=== PATIENT | female | born 1955 | race Caucasian/White ===

== ENCOUNTER → 2016-10-22 | Outpatient (REF) | payer OTHER ==
[2016-10-22 11:20] LABS: BASO % 0.5 % (0.0-1.0); EOS # 0.1 K/mm3 (0.0-0.50); EOS % 1.5 % (0.0-3.0); LARGE UNSTAINED CELL # 0.1 K/mm3 (0.0-0.4); LYMPH # 1.1 K/mm3 (1.5-4.5); LYMPH % 22.5 % (24.0-44.0); MEAN CORPUSCULAR HEMOGLOBIN 32.2 pg (27.0-33.0); MEAN CORPUSCULAR HGB CONC 33.1 g/dl (32.0-36.5); MEAN CORPUSCULAR VOLUME 97.3 fl (80.0-96.0); MONO # 0.4 K/mm3 (0.0-0.8); MONO % 7.5 % (0.0-5.0); NEUTROPHILS # 3.3 K/mm3 (1.8-7.7); PLATELET COUNT, AUTOMATED 181 k/mm3 (150-450); RED CELL DISTRIBUTION WIDTH 12.7 % (11.5-14.5); WHITE BLOOD COUNT 5.1 K/mm3 (4.0-10.0)
[2016-10-22 11:36] LABS: ALBUMIN 3.8 GM/DL (3.2-5.2); ALBUMIN/GLOBULIN RATIO 1.09 (1.00-1.93); ALKALINE PHOSPHATASE 99 U/L (45-117); ALT/SGPT 44 U/L (12-78); ANION GAP 10 MEQ/L (8-16); AST/SGOT 25 U/L (15-37); BILIRUBIN,TOTAL 0.9 MG/DL (0.2-1.0); BLOOD UREA NITROGEN 15 MG/DL (7-18); CALCIUM LEVEL 9.8 MG/DL (8.8-10.2); CARBON DIOXIDE LEVEL 29 MEQ/L (21-32); CHLORIDE LEVEL 101 MEQ/L (98-107); CHOLESTEROL LEVEL 236 MG/DL (<200); CREATININE FOR GFR 0.85 MG/DL (0.55-1.02); GLOMERULAR FILTRATION RATE > 60.0 (>45); GLUCOSE, FASTING 104 MG/DL (80-110); POTASSIUM SERUM 3.9 MEQ/L (3.5-5.1); SODIUM LEVEL 140 MEQ/L (136-145); TOTAL PROTEIN 7.3 GM/DL (6.4-8.2); TRIGLYCERIDES LEVEL 227 MG/DL (<150)
== END ==
LOC: M SFHCPLAZ 08:34
PROVIDERS: ATTEND Family Medicine
DX: I10 Essential (primary) hypertension (principal); E78.5 Hyperlipidemia, unspecified; R73.01 Impaired fasting glucose; E55.9 Vitamin D deficiency, unspecified

== ENCOUNTER → 2018-06-14 | Outpatient (REF) | payer OTHER ==
[2018-06-14 19:13] LABS: ALBUMIN 3.5 GM/DL (3.2-5.2); ALT/SGPT 81 U/L (12-78); BILIRUBIN,TOTAL 1.1 MG/DL (0.2-1.0); BLOOD UREA NITROGEN 10 MG/DL (7-18); CALCIUM LEVEL 8.7 MG/DL (8.8-10.2); CARBON DIOXIDE LEVEL 31 MEQ/L (21-32); CHLORIDE LEVEL 100 MEQ/L (98-107); CREATININE FOR GFR 0.87 MG/DL (0.55-1.30); FREE T4 1.13 NG/DL (0.76-1.46); GLOMERULAR FILTRATION RATE > 60.0 (>45); GLUCOSE, FASTING 113 MG/DL (70-100); POTASSIUM SERUM 4.1 MEQ/L (3.5-5.1); SODIUM LEVEL 137 MEQ/L (136-145); TOTAL PROTEIN 7.1 GM/DL (6.4-8.2)
[2018-06-14 19:15] LABS: VITAMIN B12 LEVEL 550 PG/ML (247-911)
[2018-06-14 19:30] LABS: HEMATOCRIT 46.8 % (36.0-47.0)
[2018-06-15 13:43] LABS: ALBUMIN % 56.3 % (55.8-66.1); ALPHA-1-GLOBULINS 0.36 GM/DL (0.17-0.41); ALPHA-2-GLOBULINS 0.94 GM/DL (0.42-0.99); ALPHA-2-GLOBULINS % 13.3 % (7.1-11.8); BETA-1-GLOBULINS % 5.6 % (4.7-7.2); BETA-2-GLOBULINS 0.37 GM/DL (0.19-0.55); BETA-2-GLOBULINS % 5.2 % (3.2-6.5); GAMMA GLOBULIN % 14.6 % (11.1-18.8); GAMMA GLOBULINS 1.04 GM/DL (0.65-1.58)
== END ==
LOC: M LABDRAW1 11:22
PROVIDERS: ATTEND Family Medicine
DX: N18.2 Chronic kidney disease, stage 2 (mild) (principal); E78.5 Hyperlipidemia, unspecified; R73.01 Impaired fasting glucose; D75.89 Other specified diseases of blood and blood-forming organs

== ENCOUNTER → 2018-08-22 | Outpatient (REF) | payer OTHER ==
[2018-08-22 13:40] LABS: ALBUMIN 3.6 GM/DL (3.2-5.2); ALT/SGPT 63 U/L (12-78); BILIRUBIN,DIRECT 0.2 MG/DL (0.0-0.2); BILIRUBIN,TOTAL 0.5 MG/DL (0.2-1.0); CHOLESTEROL LEVEL 166 MG/DL (<200); CHOLESTEROL RISK RATIO 3.387 (<5); FREE T4 1.03 NG/DL (0.76-1.46); HDL CHOLESTEROL 49 MG/DL (>40); LDL CHOLESTEROL 87 MG/DL (<100); NON-HDL-C 117 MG/DL; TOTAL PROTEIN 6.6 GM/DL (6.4-8.2); TRIGLYCERIDES LEVEL 152 MG/DL (<150)
[2018-08-23 08:23] LABS: THYROID PEROXIDASE ANTIBODY < 28.0 U/ML (<60.0)
[2018-08-23 08:34] LABS: HEPATITIS B SURFACE ANTIGEN NEGATIVE (NEGATIVE)
[2018-08-23 09:03] LABS: HEPATITIS C VIRUS ABY INDEX 0.1 INDEX (<0.8)
== END ==
LOC: M LABDRAW1 11:57
PROVIDERS: ATTEND Family Medicine
DX: E78.5 Hyperlipidemia, unspecified (principal); K76.0 Fatty (change of) liver, not elsewhere classified

== ENCOUNTER → 2018-08-25 | Outpatient (CLI) | payer OTHER ==
--- NOTE | 2018-08-25 09:37 | REP ---
RIGHT UPPER QUADRANT ULTRASOUND: Real-time sonographic evaluation of the right upper quadrant performed. Gallbladder demonstrates no evidence of intraluminal sludge or calculi, wall thickening, or pericholecystic fluid. There is no intrahepatic or extrahepatic biliary dilatation, common bile duct measuring 4 mm. Liver demonstrates heterogeneous echotexture with septated cyst in the left lobe 7 mm in diameter. No other gross liver or pancreatic mass is seen. The pancreatic tail is not well seen due to overlying bowel gas. Right kidney demonstrates no hydronephrosis with normal size 12 cm in length. There is trace free fluid inferior to the right kidney. IMPRESSION: No gallstones or biliary dilatation. Septated cyst left lobe liver 7 mm. Trace free fluid inferior to the right kidney. Electronically Signed by Thang Suárez MD 08/26/2018 10:41 A
== END ==
LOC: M RAD 07:24
PROVIDERS: ATTEND Family Medicine
DX: K76.89 Other specified diseases of liver (principal); K76.0 Fatty (change of) liver, not elsewhere classified

== ENCOUNTER → 2020-04-07 | Outpatient (REF) | payer MEDICARE, OTHER ==
[2020-04-07 14:05] LABS: BASO % 0.6 % (0.0-1.0); EOS # 0.1 10^3/uL (0.0-0.5); EOS % 1.1 % (0.0-3.0); HEMATOCRIT 43.2 % (36.0-47.0); HEMOGLOBIN 13.7 g/dl (12.0-15.5); LYMPH # 0.6 10^3/uL (1.5-5.0); LYMPH % 13.3 % (24.0-44.0); MEAN CORPUSCULAR HEMOGLOBIN 32.1 pg (27.0-33.0); MEAN CORPUSCULAR HGB CONC 31.7 g/dl (32.0-36.5); MEAN CORPUSCULAR VOLUME 101.2 fl (80.0-96.0); MONO # 0.6 10^3/uL (0.0-0.8); MONO % 12.4 % (2.0-8.0); NEUTROPHILS # 3.4 10^3/uL (1.5-8.5); PLATELET COUNT, AUTOMATED 155 10^3/uL (150-450); RED BLOOD COUNT 4.27 10^6/uL (4.00-5.40); WHITE BLOOD COUNT 4.7 10^3/uL (4.0-10.0)
[2020-04-07 14:31] LABS: HEMOGLOBIN A1c 5.3 %
[2020-04-07 14:52] LABS: MALB URINE SIEMENS 19.5 MG/L; MAU/CREAT RATIO 7.9 MCG/MG (0.0-30.0)
[2020-04-07 14:53] LABS: ALBUMIN 3.6 GM/DL (3.2-5.2); ALT/SGPT 52 U/L (12-78); BILIRUBIN,TOTAL 0.6 MG/DL (0.2-1.0); BLOOD UREA NITROGEN 14 MG/DL (7-18); CARBON DIOXIDE LEVEL 31 MEQ/L (21-32); CHLORIDE LEVEL 102 MEQ/L (98-107); CHOLESTEROL LEVEL 233 MG/DL (<200); CHOLESTEROL RISK RATIO 3.426 (<5); CREATININE FOR GFR 0.92 MG/DL (0.55-1.30); FREE T4 0.84 NG/DL (0.76-1.46); GLOMERULAR FILTRATION RATE > 60.0 (>45); GLUCOSE, FASTING 118 MG/DL (70-100); HDL CHOLESTEROL 68 MG/DL (>40); LDL CHOLESTEROL 125 MG/DL (<100); NON-HDL-C 165 MG/DL; POTASSIUM SERUM 4.1 MEQ/L (3.5-5.1); PTH INTACT 62.5 PG/ML (18.5-88.0); SODIUM LEVEL 138 MEQ/L (136-145); TOTAL 25(OH) VITAMIN D 28.8 NG/ML (30.0-100.0); TOTAL PROTEIN 6.7 GM/DL (6.4-8.2); TRIGLYCERIDES LEVEL 199 MG/DL (<150)
== END ==
LOC: M SFHCPLAZ 11:22
PROVIDERS: ATTEND Family Medicine
DX: R73.01 Impaired fasting glucose (principal); I10 Essential (primary) hypertension; E55.9 Vitamin D deficiency, unspecified; E78.5 Hyperlipidemia, unspecified; Z79.899 Other long term (current) drug therapy

== ENCOUNTER 2020-07-05 20:31 | Inpatient (IN) | payer MEDICARE, OTHER ==
[~2020-07-05] VITALS: Ht 162.6 cm; Wt 109.5 kg
[2020-07-05] MEDS ORDERED: CHLO125TA PO (20:55)
[2020-07-05] MEDS ORDERED: IRBE300T7 PO (20:55)
[2020-07-05] MEDS ORDERED: VITA50005 PO (20:55)
[2020-07-05] MEDS ORDERED: CITA40TA4 PO (20:55)
[2020-07-05] MEDS ORDERED: CARV25TA PO (20:55)
[2020-07-05] MEDS ORDERED: CLON0.5T2 PO (20:55)
[2020-07-05] MEDS ORDERED: ALPR0.25 PO (20:55)
[2020-07-05] MEDS ORDERED: TRAZ-252 PO (20:55)
[2020-07-05] MEDS ORDERED: LORazepam 2 MG/ML VIAL IV STA ×2 (21:41→23:58)
[2020-07-05] MEDS ORDERED: NS 1,000 ML IV ONE (21:45)
[2020-07-05 22:04] LABS: BASO # 0.1 10^3/uL (0.0-0.2); BASO % 0.7 % (0.0-1.0); EOS # 0.1 10^3/uL (0.0-0.5); EOS % 1.8 % (0.0-3.0); HEMATOCRIT 39.3 % (36.0-47.0); HEMOGLOBIN 12.2 g/dl (12.0-15.5); LYMPH % 29.5 % (24.0-44.0); MEAN CORPUSCULAR HEMOGLOBIN 31.8 pg (27.0-33.0); MEAN CORPUSCULAR VOLUME 102.3 fl (80.0-96.0); MONO # 0.9 10^3/uL (0.0-0.8); MONO % 12.8 % (2.0-8.0); NEUTROPHILS # 3.7 10^3/uL (1.5-8.5); NEUTROPHILS % 54.5 % (36.0-66.0); PLATELET COUNT, AUTOMATED 187 10^3/uL (150-450); RED BLOOD COUNT 3.84 10^6/uL (4.00-5.40); WHITE BLOOD COUNT 6.7 10^3/uL (4.0-10.0)
[2020-07-05 22:36] LABS: ACETAMINOPHEN LEVEL < 2.0 UG/ML (10.0-30.0); ALBUMIN 3.8 GM/DL (3.2-5.2); ALT/SGPT 48 U/L (12-78); BILIRUBIN,DIRECT 0.1 MG/DL (0.0-0.2); BILIRUBIN,TOTAL 0.4 MG/DL (0.2-1.0); BLOOD UREA NITROGEN 53 MG/DL (7-18); CALCIUM LEVEL 9.1 MG/DL (8.8-10.2); CARBON DIOXIDE LEVEL 24 MEQ/L (21-32); CHLORIDE LEVEL 101 MEQ/L (98-107); CK-MB VALUE MASS < 1.0 NG/ML (<3.6); CPK CREATINE PHOSPHOKINASE 79 U/L (26-192); CREATININE FOR GFR 2.58 MG/DL (0.55-1.30); ETHYL ALCOHOL (ETHANOL) 0.166 % (0.000-0.010); GLOMERULAR FILTRATION RATE 19.8 (>45); GLUCOSE, FASTING 102 MG/DL (70-100); MB/CK RELATIVE INDEX 1.27 (< OR =4); SALICYLATE LEVEL < 1.7 MG/DL (5.0-30.0); SODIUM LEVEL 135 MEQ/L (136-145); TOTAL PROTEIN 7.3 GM/DL (6.4-8.2); TROPONIN I < 0.02 NG/ML (< 0.10)
[2020-07-05 22:41] LABS: AMPHETAMINES LEVEL URINE NEGATIVE (NEGATIVE); BARBITURATES URINE NEGATIVE (NEGATIVE); BENZODIAZEPINES URINE POSITIVE (NEGATIVE); CANNABINOIDS URINE NEGATIVE (NEGATIVE); COCAINE METABOLITE URINE NEGATIVE (NEGATIVE); METHADONE URINE NEGATIVE (NEGATIVE); OPIATES URINE NEGATIVE (NEGATIVE); PHENCYCLIDINE URINE NEGATIVE (NEGATIVE)
--- NOTE | 2020-07-05 23:31 | REPVR ---
PROCEDURE INFORMATION: Exam: XR Chest Exam date and time: 07/05/2020 10:39 PM Age: 64 years old Clinical indication: Altered mental status TECHNIQUE: Imaging protocol: XR of the chest. Views: 1 view. COMPARISON: No relevant prior studies available. FINDINGS: Lungs: Unremarkable. No consolidation. No pulmonary edema. Pleural spaces: Unremarkable. No pleural effusion. No pneumothorax. Heart/Mediastinum: Unremarkable. No cardiomegaly. Bones/joints: There are endplate spurs in the thoracic spine. IMPRESSION: No radiographic evidence for an acute cardiopulmonary process. Electronically signed by: Stefan Sheehan On 07/05/2020 23:31:22 PM
--- NOTE | 2020-07-05 23:31 | REPVR ---
PROCEDURE INFORMATION: Exam: CT Head Without Contrast Exam date and time: 07/05/2020 10:53 PM Age: 64 years old Clinical indication: Altered mental status/memory loss TECHNIQUE: Imaging protocol: Computed tomography of the head without contrast. Radiation optimization: All CT scans at this facility use at least one of these dose optimization techniques: automated exposure control; mA and/or kV adjustment per patient size (includes targeted exams where dose is matched to clinical indication); or iterative reconstruction. COMPARISON: No relevant prior studies available. FINDINGS: Brain: There is no CT evidence for an acute large vessel territorial infarct. There are non-specific foci of low attenuation in the periventricular and subcortical white matter, which are likely the sequela of chronic small vessel ischemic injury. No acute intracranial hemorrhage is seen. No mass effect, midline shift, or herniation is noted. Cerebral ventricles: There is a chronic infarct involving the periventricular white matter adjacent to the frontal horn of the right lateral ventricle with associated ex vacuo dilatation of the frontal horn of the right lateral ventricle. Normal for age. No hydrocephalus. Bones/joints: The skull is intact. No suspicious osteolytic or osteoblastic lesion. Paranasal sinuses: The imaged portions of the sinuses are well-aerated. No air-fluid levels are noted in the sinuses. Mastoid air cells: Clear. Soft tissues: There is soft tissue edema both sides of the forehead. IMPRESSION: 1. No acute intracranial abnormality. 2. 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 Electronically signed by: Stefan Sheehan On 07/05/2020 23:30:42 PM
[2020-07-05] MEDS ORDERED: LORazepam 2 MG TAB PO PRN (23:40)
[2020-07-05] MEDS ORDERED: ACETAMINOPHEN TAB 650MG DOSE (2X325MG) PO PRN (23:40)
[2020-07-05] MEDS ORDERED: MAALOX 30 ML SUSP *UDC PO PRN (23:40)
[2020-07-05] MEDS ORDERED: MOM 30ML SUSPENSION UDC PO PRN (23:40)
[2020-07-05] MEDS ORDERED: NS 1,000 ML IV SCH (23:40)
--- NOTE | 2020-07-05 23:40 | HPEPDOC ---
[facility] Medical History & Physical Date of Admission July 05, 2020 Date of Service: July 05, 2020 Primary Care Physician: Suman Mi M.D. Attending Physician: KATELYN JASSO MD History and Physical TIME OF SERVICE: 1155pm CHIEF COMPLAINT: depression HISTORY OF PRESENT ILLNESS: Per , this 64 yr old has been with her since they were 12 yrs old but he 1 week ago thereafter his has been very depressed, crying a lot, not sleeping and not eating, making statements that she wants to and be with her and has been confused. Her PCP started her on Xanax and later switched her to Clonipine and Trazadone. She had a fall today which prompted her daughter to bring her to the hospital. She was agitated in the ER and given Ativan. REVIEW OF SYSTEMS: 12-point review of systems negative except as listed in HPI PAST MEDICAL/ SURGICAL HISTORY: essential HTN, PATEL, CKD2, YASHIRA, Obesity, bilateral knee OA SOCIAL HISTORY: lives alone & doesnt smoke FAMILY HISTORY: CAD, CVA, Cancer ALLERGIES: Please see below. HOME MEDICATIONS: Please see below. PHYSICAL EXAMINATION: VITAL SIGNS: Please see below. GENERAL APPEARANCE: well nourished and developed/ anxious & teary HEENT: EOMI / MM pink but dry CARDIOVASCULAR: RRR/NMRG LUNGS: CTAB on RA ABDOMEN: contour obese /soft / NT MUSCULOSKELETAL: NCAT /BG x 4 INTEGUMENT: not flushed pale or diaphoretic NEUROLOGICAL: CN 2-12 intact / speech not dysarthric PSYCHIATRIC: A&O x 3/ able to understand and follow all commands LABORATORY DATA: Immature Granulocyte % (Auto) 0.7, Neutrophils (%) (Auto) 54.5, Lymphocytes (%) (Auto) 29.5, Monocytes (%) (Auto) 12.8H, Eosinophils (%) (Auto) 1.8, Basophils (%) (Auto) 0.7, Neutrophils # (Auto) 3.7, Lymphocytes # (Auto) 2.0, Monocytes # (Auto) 0.9H, Eosinophils # (Auto) 0.1, Basophils # (Auto) 0.1, Nucleated Red Blood Cells % (auto) 0.0, Anion Gap 10, Glomerular Filtration Rate 19.8L, Lactic Acid Level 1.8, Calcium Level 9.1, Total Bilirubin 0.4, Direct Bilirubin 0.1, Aspartate Amino Transf (AST/SGOT) 32, Alanine Aminotransferase (ALT/SGPT) 48, Alkaline Phosphatase 90, Ammonia 28, Total Creatine Kinase 79, Creatine Kinase MB < 1.0, Creatine Kinase MB Relative Index 1.27, Troponin I < 0.02, Total Protein 7.3, Albumin 3.8, Albumin/Globulin Ratio 1.1L, Thyroid Stimulating Hormone (TSH) 1.080, Salicylates Level < 1.7L, Acetaminophen Level < 2.0L, Ethyl Alcohol Level 0.166H 07/05/20 22:09: Urine Color YELLOW, Urine Appearance HAZY, Urine pH 5.0, Urine Specific [place] 1.008, Urine Protein NEGATIVE, Urine Glucose (UA) NEGATIVE, Urine Ketones NEGATIVE, Urine Blood NEGATIVE, Urine Nitrite NEGATIVE, Urine Bilirubin NEGATIVE, Urine Urobilinogen 0.2, Urine Leukocyte Esterase TRACEH, Urine WBC (Auto) 1, Urine RBC (Auto) 1, Urine Hyaline Casts (Auto) 6, Urine Bacteria (Auto) 1+H, Urine Squamous Epithelial Cells 2, Urine Amorphous Sediment SMALLH, Urine Sperm (Auto) , Urine Opiates Screen NEGATIVE, Urine Methadone Screen NEGATIVE, Urine Barbiturates Screen NEGATIVE, Urine Phencyclidine Screen NEGATIVE, Urine Amphetamines Screen NEGATIVE, Urine Benzodiazepines Screen POSITIVEH, Urine Cocaine Metabolite Screen NEGATIVE, Urine Cannabinoids Screen NEGATIVE IMAGING: Chest xray IMPRESSION: No radiographic evidence for an acute ca rdiopulmonary process. CT head IMPRESSION: 1. No acute intracranial abnormality. 2. 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 MICROBIOLOGY: respiratory panel neg ASSESSMENT: is a 64 yr old w HTN, PATEL, CKD2, YASHIRA, Obesity, & OA who is admitted for DOROTHEA and Bereavement vs Adjustment disorder. PLAN: 1 DOROTHEA 2/2 poor PO intake and meds Plan: monitor UOP / IVF / f/u renal panel, CK, Ulytes for FENa or FEUrea / renal US / hold Chlorthalidone and Irbesartan 2 Hypotension Resolved Plan: resume Coreg 3 Bereavement vs Adjustment Disorder Plan: c/w Citalopram & Trazodone / add mirtazapine and Rozerem / day time team to consult Psych 4 Fall Suspect orthostatic hypotension Plan: IVF / neurochecks / fall precautions 5 Inebriation vs alcohol Abuse Plan: CIOR protocol 6 Obesity Complicates care DVT px w SCDs Dispo: home vs IMHU after at least 2 midnights stay Home Medications Scheduled Carvedilol (Carvedilol) 25 Mg Tablet, 25 MG PO BID Chlorthalidone (Chlorthalidone) 25 Mg Tablet, 25 MG PO DAILY Citalopram Hydrobromide (Citalopram HBr) 40 Mg Tablet, 40 MG PO DAILY Clonazepam (Clonazepam) 0.5 Mg Tablet, 0.5 MG PO DAILY Ergocalciferol (Vitamin D2) (Vitamin D2) 50,000 Units Cap, 50,000 MG PO QWEEK Irbesartan (Irbesartan) 300 Mg Tablet, 300 MG PO DAILY Trazodone HCl (Trazodone HCl) 50 Mg Tablet, 50 MG PO QHS Allergies Coded Allergies: No Known Allergies (Unverified , 07/05/20) A-FIB/CHADSVASC A-FIB History Current/History of A-Fib/PAF?: No Current PO Anticoag Therapy: No KATELYN JASSO MD July 05, 2020 23:40
[2020-07-06] VITALS (24 sets, daily range): BP systolic 66–125; BP diastolic 32–76; O2SAT 97
[2020-07-06 00:24] LABS: PHOSPHORUS LEVEL 2.7 MG/DL (2.5-4.9); URIC ACID 8.8 MG/DL (2.6-6.0)
[2020-07-06 00:40] LABS: OSMOLALITY SERUM 338 MOSM/KG (280-301)
[2020-07-06] MEDS: MIRTAZAPINE 7.5MG PER 1/2 TABLET PO SCH ×2 (00:50→20:11)
[2020-07-06 01:26] LABS: RSV AMPLIFICATION NEGATIVE (NEGATIVE)
--- NOTE | 2020-07-06 01:28 | REPVR ---
PROCEDURE INFORMATION: Exam: US Retroperitoneal Limited, Kidneys Exam date and time: 07/06/2020 12:03 AM Age: 64 years old Clinical indication: Acute kidney injury TECHNIQUE: Imaging protocol: Real-time ultrasound of the retroperitoneum with image documentation. Examination was focused on the kidneys. COMPARISON: Abdomen, limited US 08/25/2018 7:30 AM FINDINGS: Right kidney: The right kidney is normal in appearance and measures 11.3 cm in length. There is no renal cortical thinning. The renal cortical echogenicity is within normal limits. No renal lesion is seen. There is no hydronephrosis. No obvious stones are seen in the renal collecting system. Left kidney: The left kidney measures 11.2 cm in length. There is no renal cortical thinning. The renal cortical echogenicity is within normal limits. There is a 10 mm x 8 mm x 7 mm simple exophytic cyst arising from the upper pole of the left kidney, for which follow-up is not necessary. There is no hydronephrosis. No obvious stones are seen in the renal collecting system. Bladder: The urinary bladder is normal in appearance. Limited liver: The echogenicity of the liver is increased, which is compatible with fatty liver infiltration. The liver was not fully imaged. IMPRESSION: 1. Essentially normal ultrasound of the kidneys, except for a 10 mm x 8 mm x 7 mm simple exophytic cyst arising from the upper pole of the left kidney, for which follow-up is not necessary. 2. No hydronephrosis. 3. Fatty liver. Electronically signed by: Stefan Sheehan On 07/06/2020 01:28:04 AM
[2020-07-06] MEDS ORDERED: CARVedilol 12.5 MG TAB PO SCH (02:10)
[2020-07-06] MEDS: THIAMINE 100 MG TAB PO SCH ×3 (02:24→20:11)
[2020-07-06] MEDS: traZODone 50 MG TAB PO SCH ×2 (03:21→20:11)
[2020-07-06] MEDS: RAMELTEON 8 MG TAB (ROZEREM) PO SCH ×2 (03:21→20:11)
[2020-07-06] MEDS ORDERED: NS 1,000 ML IV ONE (04:35)
[2020-07-06 04:53] LABS: MEAN CORPUSCULAR HEMOGLOBIN 32.3 pg (27.0-33.0); MEAN CORPUSCULAR HGB CONC 31.4 g/dl (32.0-36.5); MEAN CORPUSCULAR VOLUME 102.6 fl (80.0-96.0); PLATELET COUNT, AUTOMATED 158 10^3/uL (150-450); RED BLOOD COUNT 3.41 10^6/uL (4.00-5.40); WHITE BLOOD COUNT 5.5 10^3/uL (4.0-10.0)
[2020-07-06 05:15] LABS: CALCIUM LEVEL 8.2 MG/DL (8.8-10.2); CREATININE FOR GFR 2.01 MG/DL (0.55-1.30); GLOMERULAR FILTRATION RATE 26.5 (>45); POTASSIUM SERUM 3.7 MEQ/L (3.5-5.1)
[2020-07-06 05:53] LABS: HEMOGLOBIN A1c 5.8 %
--- NOTE | 2020-07-06 07:52 | ECGEPIP ---
[facility] - ED Test Date: 2020-07-05 Pat Name: BERNARDO ALONSO Department: Room: [place] [address] Gender: Female Senior Software Architect: hc : [id number] Requested By: KILEY Bernstein Order Number: [id number] Reading MD: Tod Francis Measurements Intervals [place] Rate: 60 P: 26 MA: 210 QRS: -15 QRSD: 78 T: 44 QT: 460 QTc: 460 Interpretive Statements Sinus rhythm with 1st degree AV block POOR R WAVE PROGRESSION NSTTW ABNORMALITY(S) NO PRIORS FOR COMPARISON Electronically Signed on 07-06-2020 7:52:22 EDT by Tod Francis
[2020-07-06] MEDS: D5W/0.9% SODIUM CHLORIDE 1,000 ML IV SCH ×2 (08:41→20:14)
[2020-07-06] MEDS: CitaloPRAM (CeleXA) 20 MG TAB PO SCH (08:42)
[2020-07-06] MEDS: ENOXAPARIN 30MG/0.3ML SYRINGE (J1650 PER 10MG) SC SCH (08:43)
[2020-07-06] MEDS: clonazePAM 0.5 MG TAB PO SCH (08:43)
[2020-07-06] MEDS: MULTIVITAMINS/MINERALS THERAP 1 TAB PO SCH (08:43)
[2020-07-06] MEDS: FOLIC ACID 1 MG TAB PO SCH (08:43)
--- NOTE | 2020-07-06 14:20 | IPNPDOC ---
Subjective Date Seen The patient was seen on 07/06/20. Subjective Chief Complaint/HPI Makeda is up to this morning, her daughter is at the bedside. Patient is unrealistic about going home today. Her blood pressures have improved. She has not eaten much at this time. She is not expressing any suicidal ideation Objective Physical Examination General Exam: Positive: Alert, No Acute Distress Eye Exam: Positive: PERRLA, Conjunctiva & lids normal, EOMI; Negative: Sclera icteric Neck Exam: Positive: Supple; Negative: JVD, thyromegaly Chest Exam: Positive: Clear to auscultation, Normal air movement Heart Exam: Positive: Rate Normal, Regular Rhythm, Normal S1, Normal S2; Negative: Murmurs, Rubs Abdomen Exam: Positive: Normal bowel sounds, Soft; Negative: Tenderness, Hepatospenomegaly Extremity Exam: Positive: Normal pulses; Negative: Clubbing, Cyanosis, Edema Assessment /Plan Assessment # DOROTHEA 2/2 dehydration - change to d5NS @ 100 ml/hr - creat improved this am - needs another 24 hours of IVFs - repeat bmp in am # Hypotension - stop coreg # Bereavement vs Adjustment Disorder - continue Citalopram & Trazodone - consult psych # Acute alcohol intoxication - no signs of withdrawal - continue CIWA protocol # Morbid Obesity - Complicates care # DVT - SCDs and lovenox # Dispo: likely home in am Plan/VTE VTE Prophylaxis Ordered?: Yes VS, I&O, 24H, Fishbone Vital Signs/I&O Vital Signs Date Time Temp Pulse Resp B/P (MAP) Pulse Ox O2 Delivery O2 Flow Rate FiO2 07/06/20 08:15 66 105/67 (80) 96 07/06/20 08:00 97.0 16 Room Air 07/06/20 06:30 1.0 I&O- Last 24 Hours up to 6 AM 07/06/20 06:00 Intake Total 2460 ml Output Total 0 ml Balance 2460 ml Laboratory Data 24H LABS Laboratory Tests 2 07/05/20 21:52: Immature Granulocyte % (Auto) 0.7, Neutrophils (%) (Auto) 54.5, Lymphocytes (%) (Auto) 29.5, Monocytes (%) (Auto) 12.8H, Eosinophils (%) (Auto) 1.8, Basophils (%) (Auto) 0.7, Neutrophils # (Auto) 3.7, Lymphocytes # (Auto) 2.0, Monocytes # (Auto) 0.9H, Eosinophils # (Auto) 0.1, Basophils # (Auto) 0.1, Nucleated Red Blood Cells % (auto) 0.0, Anion Gap 10, Glomerular Filtration Rate 19.8L, Osmolality 338H, Lactic Acid Level 1.8, Uric Acid 8.8H, Calcium Level 9.1, Phosphorus Level 2.7, Total Bilirubin 0.4, Direct Bilirubin 0.1, Aspartate Amino Transf (AST/SGOT) 32, Alanine Aminotransferase (ALT/SGPT) 48, Alkaline Phosphatase 90, Ammonia 28, Total Creatine Kinase 79, Creatine Kinase MB < 1.0, Creatine Kinase MB Relative Index 1.27, Troponin I < 0.02, Total Protein 7.3, Albumin 3.8, Albumin/Globulin Ratio 1.1L, Thyroid Stimulating Hormone (TSH) 1.080, Salicylates Level < 1.7L, Acetaminophen Level < 2.0L, Ethyl Alcohol Level 0.166H 07/05/20 22:09: Urine Color YELLOW, Urine Appearance HAZY, Urine pH 5.0, Urine Specific [place] 1.008, Urine Protein NEGATIVE, Urine Glucose (UA) NEGATIVE, Urine Ketones NEGATIVE, Urine Blood NEGATIVE, Urine Nitrite NEGATIVE, Urine Bilirubin NEGATIVE, Urine Urobilinogen 0.2, Urine Leukocyte Esterase TRACEH, Urine WBC (Auto) 1, Urine RBC (Auto) 1, Urine Hyaline Casts (Auto) 6, Urine Bacteria (Auto) 1+H, Urine Squamous Epithelial Cells 2, Urine Amorphous Sediment SMALLH, Urine Sperm (Auto) , Urine Opiates Screen NEGATIVE, Urine Methadone Screen NEGATIVE, Urine Barbiturates Screen NEGATIVE, Urine Phencyclidine Screen NEGATIVE, Urine Amphetamines Screen NEGATIVE, Urine Benzodiazepines Screen POSITIVEH, Urine Cocaine Metabolite Screen NEGATIVE, Urine Cannabinoids Screen NEGATIVE 07/06/20 00:15: Coronavirus (COVID-19)(PCR) NEGATIVE, Influenza Type A (RT-PCR) NEGATIVE, Influenza Type B (RT-PCR) NEGATIVE, Respiratory Syncytial Virus (PCR) NEGATIVE 07/06/20 04:39: Nucleated Red Blood Cells % (auto) 0.0, Anion Gap 10, Glomerular Filtration Rate 26.5L, Calcium Level 8.2L, Estimated Mean Plasma Glucose 120H, Hemoglobin A1c 5.8 CBC/BMP Laboratory Tests 07/05/20 21:52 07/06/20 04:39 Microbiology Microbiology 07/05/20 Urine Culture, Received Pending 07/05/20 Blood Culture, Received Pending 07/05/20 Blood Culture, Received Pending NOMAN PEREZ MD July 06, 2020 14:20
--- NOTE | 2020-07-06 22:16 | MHCR ---
[facility] CONSULTATION DATE: 07/06/2020 The patient is seen via telepsychiatry. HISTORY OF PRESENT ILLNESS: The patient is a 64-year-old woman currently grieving over the of her . They have been together since she was 12 years old. The patient has been appropriately tearful and grieving but she has not been eating or drinking much. Apparently it got to the point where she fell and her daughter brought her to the hospital. The records show that the patient had made statements about wanting to with the . Her primary care provider has already been treating her with Celexa 40 mg q. daily, and then he added Klonopin 0.5 mg q. daily and Trazodone 50 mg at bedtime. The patient today tells me that she is feeling depressed and very sad and she is grieving the of her . Again, which is appropriate. She tells me however that she feels she is doing better. She says that she knows that she needs to eat. She tells me that she really wants to go home. She says both her daughters and grandchildren are very supportive in that they do not leave her sight. She really feels that the medications that she has been given for sleep and to help her with her anxiety have been very good. And she says that she did sleep good last night. PAST PSYCHIATRIC TREATMENT The patient has no history of any prior past psychiatric or current outpatient or inpatient treatment. She has never tried to hurt herself before. FAMILY HISTORY: She denies any psychiatric illness in the family. PAST MEDICAL HISTORY: The patient has multiple medical problems to include: 1. Hypertension. 2. Hyperlipidemia. 3. Chronic kidney disease. SUBSTANCE ABUSE: She denies any trouble with alcohol or drugs. MENTAL STATUS EXAMINATION: The patient is feeling very sad and grieving over her 's but this is appropriate. She is alert and oriented times three. She was pleasant and she was cooperative. She has no formal thought disorder noted. Her mood is sad. Affect is appropriate. She is not psychotic, suicidal or homicidal. Concentration and memory are good. Insight and judgment appear to be good. DIAGNOSIS: Acute bereavement. TREATMENT PLAN: At this point the patient is denying suicidal thoughts. She never said she had suicidal thoughts. And she acknowledges that she is feeling very sad now but says that she has a lot of support in her family and therefore from a psychiatric point of view the patient is not suicidal. She seems to be appropriately grieving. She is recognizing that she does have to eat. She really feels that the current medications are working good for her and she slept good last night and I did review and she did get the Trazodone 50 mg last night, but she was also given Rozerem 8 mg and so it was not clear why she was getting both but it sounds that she slept okay, but I do recommend that probably we discontinue probably the Rozerem and see if she can do and sleep okay with just the Trazodone. Of course she was already on Celexa 40 mg and that should be continued and it looks like she had Remeron 7.5 mg ordered but it was never given because she was sedated. And so I recommend that this not be continued. MTDD
[2020-07-07] VITALS: BP 113/68
[2020-07-07 03:58] VITALS: BP 124/61
[2020-07-07] MEDS: D5W/0.9% SODIUM CHLORIDE 1,000 ML IV SCH (05:30)
[2020-07-07 06:24] LABS: CALCIUM LEVEL 7.9 MG/DL (8.8-10.2); CREATININE FOR GFR 1.52 MG/DL (0.55-1.30); GLOMERULAR FILTRATION RATE 36.5 (>45); POTASSIUM SERUM 4.1 MEQ/L (3.5-5.1)
[2020-07-07 08:00] VITALS: BP 116/59
[2020-07-07] MEDS ORDERED: SLF 3 ML SYR IV PRN (08:05)
[2020-07-07] MEDS: MULTIVITAMINS/MINERALS THERAP 1 TAB PO SCH (08:57)
[2020-07-07] MEDS: clonazePAM 0.5 MG TAB PO SCH (08:58)
[2020-07-07] MEDS: FOLIC ACID 1 MG TAB PO SCH (08:58)
[2020-07-07] MEDS: THIAMINE 100 MG TAB PO SCH (08:58)
[2020-07-07] MEDS: CitaloPRAM (CeleXA) 20 MG TAB PO SCH (08:58)
[2020-07-07] MEDS: ENOXAPARIN 30MG/0.3ML SYRINGE (J1650 PER 10MG) SC SCH (09:00)
[2020-07-07 13:14] LABS: HEPATITIS B SURFACE ANTIBODY NEGATIVE (POSITIVE); PTH INTACT 57.4 PG/ML (18.5-88.0)
[2020-07-07 13:25] LABS: HEPATITIS B SURFACE ANTIGEN NEGATIVE (NEGATIVE)
[2020-07-07 13:53] LABS: HEPATITIS B CORE ANTIBODY IGM NEGATIVE (NEGATIVE)
[2020-07-07] MEDS ORDERED: SLF 3 ML SYR IV SCH (14:00)
--- NOTE | 2020-07-07 14:13 | DSES ---
DISCHARGE SUMMARY DATE OF ADMISSION: 07/05/2020 DATE OF DISCHARGE: 07/07/2020 DISCHARGE DIAGNOSES: 1. Acute kidney injury secondary to acute dehydration from poor oral intake. 2. Hypotension secondary to above. 3. Bereavement versus adjustment disorder. 4. Acute alcohol intoxication. 5. Morbid obesity. FLOAT REMOVER(S) ON THE CASE: Dr. Brody of psychiatry. PROCEDURE(S) PERFORMING DURING THIS HOSPITALIZATION: None. DISPOSITION: The patient is discharged home. CONDITION ON DISCHARGE: Stable with improvement in kidney function, as well as blood pressure. DISCHARGE INSTRUCTIONS: The patient is instructed to take medications as prescribed. She is to hydrate with IV fluids. She is to follow-up with her PCP in one week. She is to use her family support during her period of grief. The patient is advised to not mix alcohol with her antidepressant or Klonopin. IMAGING STUDIES DURING THIS HOSPITALIZATION: 1. Chest x-ray one view showed no acute pathology. 2. CT scan of the head without contrast, which showed no acute intracranial abnormality. 3. Renal ultrasound, which showed no acute obstructive pathology either. RELEVANT LABORATORY DATA: COVID swab was negative. Urine and blood cultures were negative. White count 5.5, hemoglobin 11, hematocrit 35, platelet count 158,000. Sodium 146, potassium 4.1, chloride 114, bicarb 26, anion gap 7. On admission, her BUN was 53 with a creatinine of 2.58 and at discharge, her BUN is 29 with a creatinine of 1.52. Glucose 107, calcium 7.9, lactic acid on admission was 1.8. Urine drug screen was positive for benzos, which she is prescribed, and was negative for salicylates and acetaminophen. Alcohol level was 0.166. HOSPITAL COURSE: Erin is a 64-year-old woman whose recently passed. The patient has been dealing with this tragedy and has had a poor p.o. intake and not caring for herself well. She has seen her PCP who placed her on Klonopin, as well as Celexa. The patient presented to the hospital with hypotension and acute kidney injury. She was admitted to the ICU where she was hydrated with IV fluids. Blood pressures were monitored and she was seen by psychiatry. Clinically the patient has improved. She has been sleeping well during her stay in the hospital. Her kidneys are well hydrated. All imaging studies during this hospitalization are normal. All labs thus far have shown significant improvement. She is stable for discharge home today. DISCHARGE PHYSICAL EXAMINATION: VITAL SIGNS: At the time of discharge, the patient's temperature is 97.9, pulse 63, respirations 18, blood pressure 116/59 without fluids. O2 sat is 96% on room air. GENERAL: The patient is obese, depressed, in no acute distress. SKIN: Intact and warm to touch. No pallor or jaundice. HEENT: Head is atraumatic. Pupils symmetric and react to light. She has no facial asymmetry. Her speech is fluent. Oropharynx is clear. NECK: Supple. LUNGS: Sounds present without rales or rhonchi. HEART: S1, S2. No murmurs, rubs, or gallops. ABDOMEN: Soft, nontender, and nondistended. EXTREMITIES: Without any cyanosis, clubbing, or edema. DISCHARGE MEDICATIONS: 1. Coreg 25 mg twice a day. 2. Chlorthalidone 25 mg p.o. daily. 3. Citalopram 40 mg daily. 4. Clonazepam 0.5 mg p.o. daily. 5. Ergocalciferol 50,000 mg weekly 6. Irbesartan 300 mg p.o. daily. 7. Trazodone 50 mg at bedtime. Total of 30 minutes spent completing all discharge paperwork.
== END 2020-07-07 11:25 | disposition home or self-care (01) | DRG 683 ==
LOC: M ED 20:31 → M ED INP 23:40 → ENRESERV 07-06 01:00 → CANRESERV 07-06 01:00 → M ICU 07-06 02:45 → M PCU 07-06 19:21
PROVIDERS: ADMIT Internal Medicine; ATTEND Internal Medicine
DX: N17.9 Acute kidney failure, unspecified (principal); Z68.41 Body mass index [BMI] 40.0-44.9, adult; Z63.4 Disappearance and death of family member; E66.01 Morbid (severe) obesity due to excess calories; I95.1 Orthostatic hypotension; Z79.899 Other long term (current) drug therapy; F43.20 Adjustment disorder, unspecified; E78.5 Hyperlipidemia, unspecified

== ENCOUNTER → 2020-07-11 | Outpatient (REF) | payer MEDICARE, OTHER ==
[~2020-07-11] MED LIST: ALPR0.25 PO; CARV25TA PO; CHLO125TA PO; CITA40TA4 PO; CLON0.5T2 PO; IRBE300T7 PO; TRAZ-252 PO; VITA50005 PO
[2020-07-11 17:40] LABS: BASO # 0.1 10^3/uL (0.0-0.2); BASO % 0.7 % (0.0-1.0); EOS # 0.1 10^3/uL (0.0-0.5); EOS % 1.4 % (0.0-3.0); HEMATOCRIT 39.7 % (36.0-47.0); HEMOGLOBIN 12.4 g/dl (12.0-15.5); LYMPH # 1.4 10^3/uL (1.5-5.0); LYMPH % 20.5 % (24.0-44.0); MEAN CORPUSCULAR HEMOGLOBIN 32.1 pg (27.0-33.0); MEAN CORPUSCULAR HGB CONC 31.2 g/dl (32.0-36.5); MEAN CORPUSCULAR VOLUME 102.8 fl (80.0-96.0); MONO # 0.7 10^3/uL (0.0-0.8); MONO % 9.4 % (2.0-8.0); NEUTROPHILS # 4.7 10^3/uL (1.5-8.5); NEUTROPHILS % 67.1 % (36.0-66.0); PLATELET COUNT, AUTOMATED 208 10^3/uL (150-450); RED BLOOD COUNT 3.86 10^6/uL (4.00-5.40)
[2020-07-11 18:18] LABS: HEMOGLOBIN A1c 5.9 %
[2020-07-11 18:35] LABS: ALBUMIN 3.7 GM/DL (3.2-5.2); ALT/SGPT 39 U/L (12-78); BILIRUBIN,TOTAL 0.4 MG/DL (0.2-1.0); BLOOD UREA NITROGEN 18 MG/DL (7-18); CALCIUM LEVEL 9.8 MG/DL (8.8-10.2); CARBON DIOXIDE LEVEL 27 MEQ/L (21-32); CHLORIDE LEVEL 106 MEQ/L (98-107); CHOLESTEROL LEVEL 226 MG/DL (<200); CHOLESTEROL RISK RATIO 5.022 (<5); CREATININE FOR GFR 1.55 MG/DL (0.55-1.30); ETHYL ALCOHOL (ETHANOL) < 0.003 % (0.000-0.010); FERRITIN 1123 NG/ML (8-252); GLOMERULAR FILTRATION RATE 35.7 (>45); GLUCOSE, FASTING 106 MG/DL (70-100); HDL CHOLESTEROL 45 MG/DL (>40); LDL CHOLESTEROL 135 MG/DL (<100); LIPASE 158 U/L (73-393); MAGNESIUM LEVEL 1.6 MG/DL (1.8-2.4); NON-HDL-C 181 MG/DL; NT-PRO BNP 458 PG/ML (<125); POTASSIUM SERUM 4.9 MEQ/L (3.5-5.1); SODIUM LEVEL 140 MEQ/L (136-145); TOTAL PROTEIN 6.8 GM/DL (6.4-8.2); TRIGLYCERIDES LEVEL 232 MG/DL (<150)
[2020-07-15 16:33] LABS: H PYLORI SERUM QUANT IgG ABY 1.87 (0.00-0.79); INSULIN LEVEL 26.5 uIU/mL (2.6-24.9)
== END ==
LOC: M SFHCPLAZ 15:27
PROVIDERS: ATTEND Family Medicine
DX: I10 Essential (primary) hypertension (principal); E78.5 Hyperlipidemia, unspecified; F41.1 Generalized anxiety disorder; Z79.899 Other long term (current) drug therapy

== ENCOUNTER → 2020-08-07 | Outpatient (CLI) | payer MEDICARE, OTHER ==
[~2020-08-07] MED LIST changes: +ERGO500029 PO; -VITA50005 PO
--- NOTE | 2020-08-09 23:57 | ECHO ---
ECHOCARDIOGRAM DATE OF PROCEDURE: 08/07/2020 Age: 64 Gender: Female Height: 162 cm Weight: 105 kg REFERRING PHYSICIAN: Dr. Suman Mi. INDICATION: Heart failure unspecified MEASUREMENTS: 2D Measurements: Intraventricular septum 1.20 cm Posterior wall 1.07 cm Left ventricle diastole 5.0 cm Left atrium 4.0 cm Aortic root 3.5 cm Proximal ascending aorta 2.0 cm Left atrial volume index 29 Doppler Measurements: LVOT velocity 113 cm/s LVOT VTI 21.2 cm Mitral E velocity 73.3 cm/s Mitral A velocity 101 cm/s Mitral deceleration time 259 msec MITRAL ANNULAR TISSUE DOPPLER E prime septal 6.5 cm/s, E prime lateral 9.5 cm/s DESCRIPTION: Rhythm was sinus. This was a moderately technically difficult echocardiogram. No pericardial effusion. This was a 2D, M-mode, color flow Doppler, and pulsed wave Doppler examination including mitral annular tissue Doppler. CONCLUSIONS: 1. Normal left ventricle internal dimensions and wall thickness. Normal regional LV wall motion and wall thickening. Normal LV systolic function. LVEF 65% by visual estimate. Grade 1 LV diastolic dysfunction. 2. Mild left atrial dilatation by left atrial volume index. 3. Otherwise normal appearing echocardiogram Doppler findings.
== END ==
LOC: M CARPUL 13:22
PROVIDERS: ATTEND Family Medicine
DX: I50.9 Heart failure, unspecified (principal)

== ENCOUNTER → 2020-09-02 | Outpatient (CLI) | payer MEDICARE, OTHER ==
--- NOTE | 2020-09-02 11:41 | REP ---
INDICATION: HYPERTENSION. COMPARISON: 07/06/2020. TECHNIQUE: Real-time sonographic evaluation of kidneys performed, with duplex Doppler evaluation of renal arteries. FINDINGS: The kidneys are normal in size and echotexture, right kidney measuring 10.2 x 4.4 x 4.7 cm and left kidney 11.2 x 5.6 x 5.2 cm. There is no hydronephrosis bilaterally. There is a cyst in the upper pole the left kidney 1.3 cm in diameter. Urinary bladder is not well distended. Duplex Doppler evaluation of renal arteries performed bilaterally. The peak systolic velocity of the abdominal aorta at the level of the renal arteries is 82.5 centimeter/second. The peak systolic velocity of the main right renal artery is 87.5 centimeters/second, renal to aortic ratio 1.1. Resistive indices right kidney range between 0.72 and 0.74. Acceleration times range between 0.03 and 0.06. Peak systolic velocity of the main left renal artery 66.1 centimeter/second, renal to aortic ratio 0.8. Resistive indices left kidney range between 0.71 and 0.77. Acceleration times range between 0.04 and 0.05. IMPRESSION: No compelling duplex Doppler sonographic evidence of significant renal artery stenosis bilaterally. <Electronically signed by Thang Suárez > 09/02/20 [id number]
== END ==
LOC: M RAD 09:46
PROVIDERS: ATTEND Family Medicine
DX: I10 Essential (primary) hypertension (principal)

== ENCOUNTER 2021-09-24 19:25 | Inpatient (IN) | payer MEDICARE, OTHER, MEDICAID ==
[~2021-09-24] VITALS: Ht 162.6 cm; Wt 76.6 kg
[~2021-09-24 19:25] MED LIST changes: -CITA40TA4 PO; +CITA40TA7 PO
[2021-09-24] MEDS ORDERED: NS 1,000 ML IV ONE (19:55)
[2021-09-24] MEDS ORDERED: CHLORTHALIDONE 25 MG TAB PO ONE (20:00)
[2021-09-24] MEDS ORDERED: NS 500 ML IV ONE (20:00)
[2021-09-24] MEDS ORDERED: CARVedilol 12.5 MG TAB PO ONE (20:00)
[2021-09-24] MEDS ORDERED: clonazePAM 0.5 MG TAB PO ONE (20:00)
[2021-09-24 20:22] LABS: BASO # 0.1 10^3/uL (0.0-0.2); BASO % 0.5 % (0.0-1.0); EOS % 0.1 % (0.0-3.0); HEMATOCRIT 40.1 % (36.0-47.0); HEMOGLOBIN 13.3 g/dl (12.0-15.5); LYMPH # 1.1 10^3/uL (1.5-5.0); LYMPH % 8.5 % (24.0-44.0); MEAN CORPUSCULAR HEMOGLOBIN 33.3 pg (27.0-33.0); MEAN CORPUSCULAR HGB CONC 33.2 g/dl (32.0-36.5); MEAN CORPUSCULAR VOLUME 100.5 fl (80.0-96.0); MONO # 0.7 10^3/uL (0.0-0.8); MONO % 5.1 % (2.0-8.0); NEUTROPHILS # 10.9 10^3/uL (1.5-8.5); NEUTROPHILS % 84.9 % (36.0-66.0); PLATELET COUNT, AUTOMATED 256 10^3/uL (150-450); RED BLOOD COUNT 3.99 10^6/uL (4.00-5.40); WHITE BLOOD COUNT 12.9 10^3/uL (4.0-10.0)
[2021-09-24] MEDS ORDERED: IRBESARTAN 150MG TAB PO SCH (21:00)
[2021-09-24 21:11] LABS: ALBUMIN 2.7 GM/DL (3.2-5.2); ALT/SGPT 24 U/L (12-78); BILIRUBIN,TOTAL 1.6 MG/DL (0.2-1.0); BLOOD UREA NITROGEN 14 MG/DL (7-18); CALCIUM LEVEL 9.4 MG/DL (8.8-10.2); CARBON DIOXIDE LEVEL 28 MEQ/L (21-32); CHLORIDE LEVEL 89 MEQ/L (98-107); CREATININE FOR GFR 0.83 MG/DL (0.55-1.30); ETHYL ALCOHOL (ETHANOL) < 0.003 % (0.000-0.010); GLOMERULAR FILTRATION RATE > 60.0 (>45); GLUCOSE, FASTING 116 MG/DL (70-100); LIPASE 84 U/L (73-393); MAGNESIUM LEVEL 1.6 MG/DL (1.8-2.4); POTASSIUM SERUM 2.8 MEQ/L (3.5-5.1); SODIUM LEVEL 133 MEQ/L (136-145); TOTAL PROTEIN 6.4 GM/DL (6.4-8.2)
[2021-09-24] MEDS ORDERED: KCL 10MEQ/100ML SWI (KRUN) 10 MEQ in IV 1 EA IV ONE ×2 (21:15→23:30)
[2021-09-24] MEDS ORDERED: MAG SULF 1GM/100ML (MAG RUN) 1 GM in IV 1 EA IV ONE ×2 (21:15→22:30)
[2021-09-25] VITALS (8 sets, daily range): BP systolic 92–123; BP diastolic 60–92
[2021-09-25] MEDS ORDERED: POTASSIUM CHLORIDE 10% LIQ 20 MEQ/15 ML UDC PO ONE
[2021-09-25] MEDS ORDERED: LORazepam 2 MG TAB PO PRN
[2021-09-25] MEDS ORDERED: KCL 10MEQ/100ML SWI (KRUN) 10 MEQ in IV 1 EA IV ONE (00:30)
[2021-09-25] MEDS ORDERED: IRBE150T7 PO (01:11)
[2021-09-25] MEDS ORDERED: HOME MED LIST COMPLETE! XX SCH (01:15)
[2021-09-25] MEDS ORDERED: NS 1,000 ML IV SCH (02:30)
[2021-09-25] MEDS ORDERED: NYSTATIN 100,000 UNITS/GM TOPICAL PWD 15 GM TOP SCH ×2 (02:30→09:00)
[2021-09-25] MEDS: THIAMINE 100 MG TAB PO SCH ×3 (02:50→20:48)
[2021-09-25] MEDS: diphenhydrAMINE 25MG CAP PO PRN ×2 (02:51→09:57)
[2021-09-25] MEDS: ACETAMINOPHEN TAB 650MG DOSE (2X325MG) PO PRN ×2 (02:52→17:10)
[2021-09-25] MEDS: NYSTATIN 100,000 UNITS/GM TOPICAL PWD 15 GM TOP SCH ×3 (03:20→21:00)
[2021-09-25] MEDS ORDERED: PROCHLORPERAZINE 10MG 2ML VIAL IV PRN (03:50)
[2021-09-25] MEDS: HEPARIN SOD (PORCINE) 5000UNITS/ML 1ML VIAL/SYRINGE SC SCH ×3 (06:12→21:07)
[2021-09-25 06:44] LABS: BLOOD UREA NITROGEN 17 MG/DL (7-18); CALCIUM LEVEL 8.7 MG/DL (8.8-10.2); CARBON DIOXIDE LEVEL 27 MEQ/L (21-32); CHLORIDE LEVEL 93 MEQ/L (98-107); CREATININE FOR GFR 0.92 MG/DL (0.55-1.30); GLOMERULAR FILTRATION RATE > 60.0 (>45); GLUCOSE, FASTING 104 MG/DL (70-100); MAGNESIUM LEVEL 2.1 MG/DL (1.8-2.4); POTASSIUM SERUM 2.9 MEQ/L (3.5-5.1); SODIUM LEVEL 132 MEQ/L (136-145)
[2021-09-25] MEDS: ESCITALOPRAM OXALATE 5MG TABLET (LEXAPRO) PO SCH (08:20)
[2021-09-25] MEDS: MULTIVITAMINS/MINERALS THERAP 1 TAB PO SCH (08:20)
[2021-09-25] MEDS: FOLIC ACID 1MG TAB PO SCH (08:20)
[2021-09-25 08:55] LABS: AMORPHOUS SEDIMENT, URINE MOD AMOUNT (NEGATIVE); BACTERIA, URINE SMALL AMOUNT; HYALINE CAST, URINE 0-1 /lpf (0-1); MUCUS, URINE LARGE AMOUNT (NEGATIVE); RBC, URINE 0-1 /hpf (0-3); SQUAMOUS EPITHELIAL CELL URINE SMALL AMOUNT /hpf (SMALL AMT)
[2021-09-25 09:17] LABS: OSMOLALITY SERUM 281 MOSM/KG (280-301)
[2021-09-25 09:51] LABS: CORTISOL AM 25.1 UG/DL (4.3-22.4); FREE T4 1.43 NG/DL (0.76-1.46)
[2021-09-25] MEDS ORDERED: LR 1,000 ML IV SCH (10:00)
[2021-09-25 11:13] LABS: CALCIUM LEVEL 8.5 MG/DL (8.8-10.2); CREATININE FOR GFR 1.01 MG/DL (0.55-1.30); GLOMERULAR FILTRATION RATE 58.4 (>45); MAGNESIUM LEVEL 2.2 MG/DL (1.8-2.4); POTASSIUM SERUM 3.1 MEQ/L (3.5-5.1)
[2021-09-25] MEDS ORDERED: POTASSIUM CHLORIDE 10MEQ SR TABLET PO ONE (12:00)
[2021-09-25] MEDS: cefTRIAXone SOD 1 GM in D5W MINI-BAG PLUS 50 ML IV SCH (12:24)
[2021-09-26] VITALS (8 sets, daily range): BP systolic 99–154; BP diastolic 65–90
[2021-09-26] MEDS: HEPARIN SOD (PORCINE) 5000UNITS/ML 1ML VIAL/SYRINGE SC SCH ×3 (06:38→21:46)
[2021-09-26 07:11] LABS: BASO # 0.1 10^3/uL (0.0-0.2); BASO % 0.7 % (0.0-1.0); EOS # 0.1 10^3/uL (0.0-0.5); EOS % 1.9 % (0.0-3.0); HEMATOCRIT 31.8 % (36.0-47.0); LYMPH # 1.8 10^3/uL (1.5-5.0); LYMPH % 24.6 % (24.0-44.0); MEAN CORPUSCULAR HEMOGLOBIN 34.4 pg (27.0-33.0); MEAN CORPUSCULAR VOLUME 101.3 fl (80.0-96.0); MONO # 0.5 10^3/uL (0.0-0.8); NEUTROPHILS # 4.9 10^3/uL (1.5-8.5); NEUTROPHILS % 64.9 % (36.0-66.0); PLATELET COUNT, AUTOMATED 215 10^3/uL (150-450); RED BLOOD COUNT 3.14 10^6/uL (4.00-5.40); WHITE BLOOD COUNT 7.5 10^3/uL (4.0-10.0)
[2021-09-26 07:13] LABS: HEMOGLOBIN 10.8 g/dl (12.0-15.5)
[2021-09-26 07:40] LABS: BLOOD UREA NITROGEN 16 MG/DL (7-18); CALCIUM LEVEL 8.4 MG/DL (8.8-10.2); CARBON DIOXIDE LEVEL 29 MEQ/L (21-32); CHLORIDE LEVEL 96 MEQ/L (98-107); CREATININE FOR GFR 0.77 MG/DL (0.55-1.30); GLOMERULAR FILTRATION RATE > 60.0 (>45); GLUCOSE, FASTING 83 MG/DL (70-100); MAGNESIUM LEVEL 1.8 MG/DL (1.8-2.4); POTASSIUM SERUM 2.9 MEQ/L (3.5-5.1); SODIUM LEVEL 133 MEQ/L (136-145)
[2021-09-26] MEDS ORDERED: POTASSIUM CHLORIDE 10MEQ SR TABLET PO SCH ×2 (09:00→21:00)
[2021-09-26] MEDS: NYSTATIN 100,000 UNITS/GM TOPICAL PWD 15 GM TOP SCH ×2 (09:32→20:37)
[2021-09-26] MEDS: ESCITALOPRAM OXALATE 5MG TABLET (LEXAPRO) PO SCH (09:32)
[2021-09-26] MEDS: ACETAMINOPHEN TAB 650MG DOSE (2X325MG) PO PRN (09:32)
[2021-09-26] MEDS: THIAMINE 100 MG TAB PO SCH ×2 (09:32→20:36)
[2021-09-26] MEDS: diphenhydrAMINE 25MG CAP PO PRN (09:32)
[2021-09-26] MEDS: FOLIC ACID 1MG TAB PO SCH (09:32)
[2021-09-26] MEDS: MULTIVITAMINS/MINERALS THERAP 1 TAB PO SCH (09:32)
[2021-09-26 13:45] LABS: BLOOD UREA NITROGEN 15 MG/DL (7-18); CARBON DIOXIDE LEVEL 32 MEQ/L (21-32); CHLORIDE LEVEL 96 MEQ/L (98-107); CREATININE FOR GFR 0.73 MG/DL (0.55-1.30); GLOMERULAR FILTRATION RATE > 60.0 (>45); GLUCOSE, FASTING 89 MG/DL (70-100); POTASSIUM SERUM 3.4 MEQ/L (3.5-5.1); SODIUM LEVEL 136 MEQ/L (136-145)
[2021-09-26] MEDS: cefTRIAXone SOD 1 GM in D5W MINI-BAG PLUS 50 ML IV SCH (14:08)
[2021-09-26] MEDS ORDERED: POTASSIUM CHLORIDE 10MEQ SR TABLET PO ONE (15:00)
[2021-09-26 18:31] LABS: BLOOD UREA NITROGEN 15 MG/DL (7-18); CALCIUM LEVEL 8.8 MG/DL (8.8-10.2); CARBON DIOXIDE LEVEL 32 MEQ/L (21-32); CHLORIDE LEVEL 98 MEQ/L (98-107); CREATININE FOR GFR 0.76 MG/DL (0.55-1.30); GLOMERULAR FILTRATION RATE > 60.0 (>45); GLUCOSE, FASTING 105 MG/DL (70-100); POTASSIUM SERUM 3.1 MEQ/L (3.5-5.1); SODIUM LEVEL 136 MEQ/L (136-145)
[2021-09-27] MEDS: HEPARIN SOD (PORCINE) 5000UNITS/ML 1ML VIAL/SYRINGE SC SCH ×3 (05:39→20:04)
[2021-09-27 06:22] VITALS: BP 147/81
[2021-09-27 07:04] LABS: BASO % 0.6 % (0.0-1.0); EOS # 0.1 10^3/uL (0.0-0.5); EOS % 1.4 % (0.0-3.0); HEMATOCRIT 32.8 % (36.0-47.0); HEMOGLOBIN 10.7 g/dl (12.0-15.5); LYMPH # 1.8 10^3/uL (1.5-5.0); LYMPH % 25.1 % (24.0-44.0); MEAN CORPUSCULAR HEMOGLOBIN 33.8 pg (27.0-33.0); MEAN CORPUSCULAR HGB CONC 32.6 g/dl (32.0-36.5); MEAN CORPUSCULAR VOLUME 103.5 fl (80.0-96.0); MONO # 0.5 10^3/uL (0.0-0.8); MONO % 7.7 % (2.0-8.0); NEUTROPHILS # 4.5 10^3/uL (1.5-8.5); NEUTROPHILS % 64.5 % (36.0-66.0); PLATELET COUNT, AUTOMATED 224 10^3/uL (150-450); RED BLOOD COUNT 3.17 10^6/uL (4.00-5.40)
[2021-09-27 07:15] VITALS: BP 139/88
[2021-09-27 07:34] LABS: BLOOD UREA NITROGEN 12 MG/DL (7-18); CALCIUM LEVEL 8.8 MG/DL (8.8-10.2); CARBON DIOXIDE LEVEL 31 MEQ/L (21-32); CHLORIDE LEVEL 100 MEQ/L (98-107); CREATININE FOR GFR 0.65 MG/DL (0.55-1.30); GLOMERULAR FILTRATION RATE > 60.0 (>45); GLUCOSE, FASTING 82 MG/DL (70-100); MAGNESIUM LEVEL 1.7 MG/DL (1.8-2.4); SODIUM LEVEL 138 MEQ/L (136-145)
[2021-09-27] MEDS ORDERED: MAG SULF 1GM/100ML (MAG RUN) 1 GM in IV 1 EA IV ONE (09:00)
[2021-09-27] MEDS: NYSTATIN 100,000 UNITS/GM TOPICAL PWD 15 GM TOP SCH ×2 (10:00→20:05)
[2021-09-27] MEDS: THIAMINE 100 MG TAB PO SCH ×2 (10:01→20:04)
[2021-09-27] MEDS: VENLAFAXINE **XR** 37.5 MG CAPSULE PO SCH (10:01)
[2021-09-27] MEDS: MULTIVITAMINS/MINERALS THERAP 1 TAB PO SCH (10:01)
[2021-09-27] MEDS: FOLIC ACID 1MG TAB PO SCH (10:01)
[2021-09-27] MEDS: cefTRIAXone SOD 1 GM in D5W MINI-BAG PLUS 50 ML IV SCH (13:32)
[2021-09-27 14:00] VITALS: BP 117/78
[2021-09-27] MEDS ORDERED: POTASSIUM CHLORIDE 10MEQ SR TABLET PO ONE (15:00)
[2021-09-27 16:36] LABS: BLOOD UREA NITROGEN 10 MG/DL (7-18); CALCIUM LEVEL 8.9 MG/DL (8.8-10.2); CARBON DIOXIDE LEVEL 29 MEQ/L (21-32); CHLORIDE LEVEL 101 MEQ/L (98-107); CREATININE FOR GFR 0.61 MG/DL (0.55-1.30); GLOMERULAR FILTRATION RATE > 60.0 (>45); GLUCOSE, FASTING 95 MG/DL (70-100); MAGNESIUM LEVEL 1.9 MG/DL (1.8-2.4); POTASSIUM SERUM 3.4 MEQ/L (3.5-5.1); SODIUM LEVEL 135 MEQ/L (136-145)
[2021-09-27 22:00] VITALS: BP 128/77
[2021-09-28] MEDS: HEPARIN SOD (PORCINE) 5000UNITS/ML 1ML VIAL/SYRINGE SC SCH ×3 (05:10→21:58)
[2021-09-28 05:13] VITALS: BP 132/94
[2021-09-28 06:37] LABS: BASO % 0.4 % (0.0-1.0); EOS # 0.1 10^3/uL (0.0-0.5); EOS % 0.9 % (0.0-3.0); HEMATOCRIT 32.4 % (36.0-47.0); HEMOGLOBIN 10.7 g/dl (12.0-15.5); LYMPH # 1.8 10^3/uL (1.5-5.0); LYMPH % 21.8 % (24.0-44.0); MEAN CORPUSCULAR HEMOGLOBIN 33.2 pg (27.0-33.0); MEAN CORPUSCULAR VOLUME 100.6 fl (80.0-96.0); MONO # 0.6 10^3/uL (0.0-0.8); MONO % 7.7 % (2.0-8.0); NEUTROPHILS # 5.5 10^3/uL (1.5-8.5); NEUTROPHILS % 68.3 % (36.0-66.0); PLATELET COUNT, AUTOMATED 219 10^3/uL (150-450); RED BLOOD COUNT 3.22 10^6/uL (4.00-5.40)
[2021-09-28 07:17] LABS: BLOOD UREA NITROGEN 7 MG/DL (7-18); CALCIUM LEVEL 8.8 MG/DL (8.8-10.2); CARBON DIOXIDE LEVEL 27 MEQ/L (21-32); CHLORIDE LEVEL 99 MEQ/L (98-107); CREATININE FOR GFR 0.58 MG/DL (0.55-1.30); GLOMERULAR FILTRATION RATE > 60.0 (>45); GLUCOSE, FASTING 87 MG/DL (70-100); MAGNESIUM LEVEL 1.6 MG/DL (1.8-2.4); POTASSIUM SERUM 3.4 MEQ/L (3.5-5.1); SODIUM LEVEL 134 MEQ/L (136-145)
[2021-09-28] MEDS ORDERED: MAGNESIUM OXIDE 400MG TAB (MAG-OX) PO SCH (09:00)
[2021-09-28] MEDS ORDERED: LR 1,000 ML IV ONE (10:10)
[2021-09-28] MEDS: NYSTATIN 100,000 UNITS/GM TOPICAL PWD 15 GM TOP SCH ×2 (10:18→21:58)
[2021-09-28] MEDS: VENLAFAXINE **XR** 37.5 MG CAPSULE PO SCH (10:19)
[2021-09-28] MEDS: THIAMINE 100 MG TAB PO SCH ×2 (10:19→21:58)
[2021-09-28] MEDS: MULTIVITAMINS/MINERALS THERAP 1 TAB PO SCH (10:19)
[2021-09-28] MEDS: FOLIC ACID 1MG TAB PO SCH (10:19)
[2021-09-28] MEDS: MAGNESIUM OXIDE 400MG TAB (MAG-OX) PO SCH ×2 (10:19→21:57)
[2021-09-28] MEDS: POTASSIUM CHLORIDE 10MEQ SR TABLET PO SCH (10:19)
[2021-09-28] MEDS: ACETAMINOPHEN TAB 650MG DOSE (2X325MG) PO PRN (15:07)
[2021-09-29 05:28] VITALS: BP 162/108
[2021-09-29] MEDS: HEPARIN SOD (PORCINE) 5000UNITS/ML 1ML VIAL/SYRINGE SC SCH ×3 (05:36→22:15)
[2021-09-29 06:20] LABS: BASO % 0.5 % (0.0-1.0); EOS # 0.1 10^3/uL (0.0-0.5); EOS % 0.9 % (0.0-3.0); HEMATOCRIT 31.9 % (36.0-47.0); HEMOGLOBIN 10.3 g/dl (12.0-15.5); LYMPH % 23.4 % (24.0-44.0); MEAN CORPUSCULAR HEMOGLOBIN 32.4 pg (27.0-33.0); MEAN CORPUSCULAR HGB CONC 32.3 g/dl (32.0-36.5); MEAN CORPUSCULAR VOLUME 100.3 fl (80.0-96.0); MONO # 0.7 10^3/uL (0.0-0.8); MONO % 8.5 % (2.0-8.0); NEUTROPHILS # 5.7 10^3/uL (1.5-8.5); NEUTROPHILS % 65.5 % (36.0-66.0); PLATELET COUNT, AUTOMATED 227 10^3/uL (150-450); RED BLOOD COUNT 3.18 10^6/uL (4.00-5.40); WHITE BLOOD COUNT 8.7 10^3/uL (4.0-10.0)
[2021-09-29 06:39] LABS: BLOOD UREA NITROGEN 5 MG/DL (7-18); CALCIUM LEVEL 8.8 MG/DL (8.8-10.2); CARBON DIOXIDE LEVEL 30 MEQ/L (21-32); CHLORIDE LEVEL 100 MEQ/L (98-107); CREATININE FOR GFR 0.55 MG/DL (0.55-1.30); GLOMERULAR FILTRATION RATE > 60.0 (>45); GLUCOSE, FASTING 89 MG/DL (70-100); MAGNESIUM LEVEL 1.5 MG/DL (1.8-2.4); POTASSIUM SERUM 3.6 MEQ/L (3.5-5.1); SODIUM LEVEL 136 MEQ/L (136-145)
[2021-09-29 08:30] VITALS: BP 132/76
[2021-09-29] MEDS: THIAMINE 100 MG TAB PO SCH ×2 (09:57→20:42)
[2021-09-29] MEDS: MULTIVITAMINS/MINERALS THERAP 1 TAB PO SCH (09:57)
[2021-09-29] MEDS: VENLAFAXINE **XR** 37.5 MG CAPSULE PO SCH (09:57)
[2021-09-29] MEDS: POTASSIUM CHLORIDE 10MEQ SR TABLET PO SCH (09:57)
[2021-09-29] MEDS: FOLIC ACID 1MG TAB PO SCH (09:57)
[2021-09-29] MEDS: MAGNESIUM OXIDE 400MG TAB (MAG-OX) PO SCH ×2 (09:57→20:42)
[2021-09-29] MEDS: NYSTATIN 100,000 UNITS/GM TOPICAL PWD 15 GM TOP SCH ×2 (09:58→20:42)
[2021-09-30] MEDS: HEPARIN SOD (PORCINE) 5000UNITS/ML 1ML VIAL/SYRINGE SC SCH ×3 (05:35→21:28)
[2021-09-30 05:53] VITALS: BP 138/84
[2021-09-30 06:14] VITALS: BP 160/110
[2021-09-30 06:22] LABS: BASO # 0.1 10^3/uL (0.0-0.2); BASO % 0.6 % (0.0-1.0); EOS # 0.1 10^3/uL (0.0-0.5); EOS % 1.2 % (0.0-3.0); HEMATOCRIT 33.1 % (36.0-47.0); HEMOGLOBIN 10.7 g/dl (12.0-15.5); LYMPH # 1.8 10^3/uL (1.5-5.0); LYMPH % 20.7 % (24.0-44.0); MEAN CORPUSCULAR HGB CONC 32.3 g/dl (32.0-36.5); MEAN CORPUSCULAR VOLUME 102.2 fl (80.0-96.0); MONO # 0.8 10^3/uL (0.0-0.8); MONO % 8.8 % (2.0-8.0); NEUTROPHILS % 67.7 % (36.0-66.0); PLATELET COUNT, AUTOMATED 228 10^3/uL (150-450); RED BLOOD COUNT 3.24 10^6/uL (4.00-5.40); WHITE BLOOD COUNT 8.8 10^3/uL (4.0-10.0)
[2021-09-30 06:48] LABS: BLOOD UREA NITROGEN 4 MG/DL (7-18); CALCIUM LEVEL 8.9 MG/DL (8.8-10.2); CARBON DIOXIDE LEVEL 26 MEQ/L (21-32); CHLORIDE LEVEL 102 MEQ/L (98-107); GLOMERULAR FILTRATION RATE > 60.0 (>45); GLUCOSE, FASTING 85 MG/DL (70-100); MAGNESIUM LEVEL 1.6 MG/DL (1.8-2.4); POTASSIUM SERUM 4.3 MEQ/L (3.5-5.1); SODIUM LEVEL 136 MEQ/L (136-145)
[2021-09-30] MEDS: FOLIC ACID 1MG TAB PO SCH (09:43)
[2021-09-30] MEDS: POTASSIUM CHLORIDE 10MEQ SR TABLET PO SCH (09:43)
[2021-09-30] MEDS: THIAMINE 100 MG TAB PO SCH ×2 (09:43→20:08)
[2021-09-30] MEDS: MULTIVITAMINS/MINERALS THERAP 1 TAB PO SCH (09:43)
[2021-09-30] MEDS: VENLAFAXINE **XR** 37.5 MG CAPSULE PO SCH (09:43)
[2021-09-30] MEDS: MAGNESIUM OXIDE 400MG TAB (MAG-OX) PO SCH ×2 (09:43→20:08)
[2021-09-30] MEDS: NYSTATIN 100,000 UNITS/GM TOPICAL PWD 15 GM TOP SCH ×2 (09:44→20:09)
[2021-09-30 11:42] VITALS: BP 138/86
[2021-10-01] MEDS: HEPARIN SOD (PORCINE) 5000UNITS/ML 1ML VIAL/SYRINGE SC SCH ×3 (05:11→21:01)
[2021-10-01 06:00] VITALS: BP 145/82
[2021-10-01 06:31] LABS: BASO % 0.2 % (0.0-1.0); EOS # 0.1 10^3/uL (0.0-0.5); EOS % 0.3 % (0.0-3.0); HEMATOCRIT 35.4 % (36.0-47.0); HEMOGLOBIN 11.5 g/dl (12.0-15.5); LYMPH # 0.7 10^3/uL (1.5-5.0); LYMPH % 3.9 % (24.0-44.0); MEAN CORPUSCULAR HEMOGLOBIN 32.8 pg (27.0-33.0); MEAN CORPUSCULAR HGB CONC 32.5 g/dl (32.0-36.5); MEAN CORPUSCULAR VOLUME 100.9 fl (80.0-96.0); MONO # 1.4 10^3/uL (0.0-0.8); MONO % 8.1 % (2.0-8.0); NEUTROPHILS % 85.9 % (36.0-66.0); PLATELET COUNT, AUTOMATED 249 10^3/uL (150-450); RED BLOOD COUNT 3.51 10^6/uL (4.00-5.40); WHITE BLOOD COUNT 17.5 10^3/uL (4.0-10.0)
[2021-10-01 07:01] LABS: BLOOD UREA NITROGEN 6 MG/DL (7-18); CALCIUM LEVEL 8.8 MG/DL (8.8-10.2); CARBON DIOXIDE LEVEL 23 MEQ/L (21-32); CHLORIDE LEVEL 99 MEQ/L (98-107); CREATININE FOR GFR 0.67 MG/DL (0.55-1.30); GLOMERULAR FILTRATION RATE > 60.0 (>45); GLUCOSE, FASTING 101 MG/DL (70-100); MAGNESIUM LEVEL 1.5 MG/DL (1.8-2.4); POTASSIUM SERUM 4.5 MEQ/L (3.5-5.1); SODIUM LEVEL 131 MEQ/L (136-145)
[2021-10-01] MEDS: POTASSIUM CHLORIDE 10MEQ SR TABLET PO SCH (09:53)
[2021-10-01] MEDS: MAGNESIUM OXIDE 400MG TAB (MAG-OX) PO SCH ×2 (09:53→21:01)
[2021-10-01] MEDS: VENLAFAXINE **XR** 37.5 MG CAPSULE PO SCH (09:53)
[2021-10-01] MEDS: MULTIVITAMINS/MINERALS THERAP 1 TAB PO SCH (09:53)
[2021-10-01] MEDS: NYSTATIN 100,000 UNITS/GM TOPICAL PWD 15 GM TOP SCH ×2 (09:54→21:01)
[2021-10-01] MEDS: THIAMINE 100 MG TAB PO SCH ×2 (09:54→21:01)
[2021-10-01] MEDS: FOLIC ACID 1MG TAB PO SCH (09:54)
[2021-10-01] MEDS ORDERED: MAGNESIUM OXIDE 400MG TAB (MAG-OX) PO ONE (10:05)
[2021-10-01] MEDS: MAG SULF 1GM/100ML (MAG RUN) 1 GM in IV 1 EA IV SCH (11:49)
[2021-10-01] MEDS: IRBESARTAN 150MG TAB PO SCH (13:04)
[2021-10-01 13:30] VITALS: BP 127/82
[2021-10-01 15:43] LABS: BACTERIA, URINE LARGE AMOUNT; HYALINE CAST, URINE NONE SEEN /lpf (0-1); MUCUS, URINE MOD AMOUNT (NEGATIVE); RBC, URINE 0-1 /hpf (0-3); SQUAMOUS EPITHELIAL CELL URINE MOD AMOUNT /hpf (SMALL AMT)
[2021-10-01] MEDS: MIRTAZAPINE 15 MG TAB PO SCH (18:03)
[2021-10-02] MEDS: HEPARIN SOD (PORCINE) 5000UNITS/ML 1ML VIAL/SYRINGE SC SCH ×3 (05:36→21:59)
[2021-10-02 06:00] VITALS: BP 125/85
[2021-10-02 06:12] LABS: BASO # 0.1 10^3/uL (0.0-0.2); BASO % 0.7 % (0.0-1.0); EOS # 0.1 10^3/uL (0.0-0.5); HEMATOCRIT 37.3 % (36.0-47.0); HEMOGLOBIN 11.7 g/dl (12.0-15.5); LYMPH # 0.5 10^3/uL (1.5-5.0); LYMPH % 5.8 % (24.0-44.0); MEAN CORPUSCULAR HEMOGLOBIN 33.1 pg (27.0-33.0); MEAN CORPUSCULAR HGB CONC 31.4 g/dl (32.0-36.5); MEAN CORPUSCULAR VOLUME 105.4 fl (80.0-96.0); MONO # 0.8 10^3/uL (0.0-0.8); MONO % 8.5 % (2.0-8.0); NEUTROPHILS # 7.6 10^3/uL (1.5-8.5); NEUTROPHILS % 83.3 % (36.0-66.0); PLATELET COUNT, AUTOMATED 225 10^3/uL (150-450); RED BLOOD COUNT 3.54 10^6/uL (4.00-5.40); WHITE BLOOD COUNT 9.1 10^3/uL (4.0-10.0)
[2021-10-02 06:50] LABS: ALBUMIN 2.3 GM/DL (3.2-5.2); ALT/SGPT 31 U/L (12-78); BILIRUBIN,TOTAL 0.5 MG/DL (0.2-1.0); BLOOD UREA NITROGEN 13 MG/DL (7-18); CALCIUM LEVEL 8.9 MG/DL (8.8-10.2); CARBON DIOXIDE LEVEL 24 MEQ/L (21-32); CHLORIDE LEVEL 102 MEQ/L (98-107); GLOMERULAR FILTRATION RATE > 60.0 (>45); GLUCOSE, FASTING 85 MG/DL (70-100); MAGNESIUM LEVEL 1.7 MG/DL (1.8-2.4); POTASSIUM SERUM 4.4 MEQ/L (3.5-5.1); SODIUM LEVEL 136 MEQ/L (136-145); TOTAL PROTEIN 5.4 GM/DL (6.4-8.2)
[2021-10-02] MEDS: FOLIC ACID 1MG TAB PO SCH (09:38)
[2021-10-02] MEDS: THIAMINE 100 MG TAB PO SCH ×2 (09:38→21:59)
[2021-10-02] MEDS: MULTIVITAMINS/MINERALS THERAP 1 TAB PO SCH (09:38)
[2021-10-02] MEDS: VENLAFAXINE **XR** 37.5 MG CAPSULE PO SCH (09:38)
[2021-10-02] MEDS: POTASSIUM CHLORIDE 10MEQ SR TABLET PO SCH (09:38)
[2021-10-02] MEDS: IRBESARTAN 150MG TAB PO SCH (09:39)
[2021-10-02] MEDS: MAG SULF 1GM/100ML (MAG RUN) 1 GM in IV 1 EA IV SCH ×2 (09:39→11:03)
[2021-10-02] MEDS: NYSTATIN 100,000 UNITS/GM TOPICAL PWD 15 GM TOP SCH ×2 (09:40→22:53)
[2021-10-02] MEDS: ACETAMINOPHEN TAB 650MG DOSE (2X325MG) PO PRN (16:06)
[2021-10-02] MEDS: MIRTAZAPINE 15 MG TAB PO SCH (18:32)
[2021-10-03 05:36] VITALS: BP 130/81
[2021-10-03] MEDS: HEPARIN SOD (PORCINE) 5000UNITS/ML 1ML VIAL/SYRINGE SC SCH ×3 (05:43→21:34)
[2021-10-03] MEDS: THIAMINE 100 MG TAB PO SCH (09:46)
[2021-10-03] MEDS: POTASSIUM CHLORIDE 10MEQ SR TABLET PO SCH (09:46)
[2021-10-03] MEDS: MULTIVITAMINS/MINERALS THERAP 1 TAB PO SCH (09:46)
[2021-10-03] MEDS: VENLAFAXINE **XR** 37.5 MG CAPSULE PO SCH (09:46)
[2021-10-03] MEDS: FOLIC ACID 1MG TAB PO SCH (09:46)
[2021-10-03] MEDS: IRBESARTAN 150MG TAB PO SCH (09:47)
[2021-10-03] MEDS: NYSTATIN 100,000 UNITS/GM TOPICAL PWD 15 GM TOP SCH ×2 (09:48→21:35)
[2021-10-03 15:01] LABS: BASO % 0.3 % (0.0-1.0); EOS % 0.3 % (0.0-3.0); HEMATOCRIT 36.1 % (36.0-47.0); HEMOGLOBIN 11.9 g/dl (12.0-15.5); LYMPH % 8.1 % (24.0-44.0); MEAN CORPUSCULAR HEMOGLOBIN 33.2 pg (27.0-33.0); MEAN CORPUSCULAR VOLUME 100.8 fl (80.0-96.0); MONO # 1.3 10^3/uL (0.0-0.8); MONO % 10.9 % (2.0-8.0); NEUTROPHILS # 9.4 10^3/uL (1.5-8.5); NEUTROPHILS % 79.8 % (36.0-66.0); PLATELET COUNT, AUTOMATED 265 10^3/uL (150-450); RED BLOOD COUNT 3.58 10^6/uL (4.00-5.40); WHITE BLOOD COUNT 11.8 10^3/uL (4.0-10.0)
[2021-10-03 15:30] LABS: ALBUMIN 2.4 GM/DL (3.2-5.2); ALT/SGPT 39 U/L (12-78); BILIRUBIN,TOTAL 0.5 MG/DL (0.2-1.0); BLOOD UREA NITROGEN 15 MG/DL (7-18); CALCIUM LEVEL 8.6 MG/DL (8.8-10.2); CARBON DIOXIDE LEVEL 26 MEQ/L (21-32); CHLORIDE LEVEL 100 MEQ/L (98-107); CREATININE FOR GFR 0.95 MG/DL (0.55-1.30); GLOMERULAR FILTRATION RATE > 60.0 (>45); GLUCOSE, FASTING 96 MG/DL (70-100); MAGNESIUM LEVEL 2.2 MG/DL (1.8-2.4); POTASSIUM SERUM 6.1 MEQ/L (3.5-5.1); SODIUM LEVEL 131 MEQ/L (136-145); TOTAL PROTEIN 5.8 GM/DL (6.4-8.2)
[2021-10-03] MEDS ORDERED: HumuLIN R (REGULAR) INSULIN (NovoLIN R) **100U/ML** PER UNIT IV STA (16:01)
[2021-10-03] MEDS ORDERED: DEXTROSE 50% 50 ML SYRINGE IV STA (16:01)
[2021-10-03] MEDS ORDERED: SOD POLYSTYRENE SULFONATE SUSP 15GM 60ML UD PO ONE (17:00)
[2021-10-03 17:20] LABS: BASO % 0.3 % (0.0-1.0); EOS % 0.2 % (0.0-3.0); HEMATOCRIT 37.5 % (36.0-47.0); HEMOGLOBIN 12.1 g/dl (12.0-15.5); LYMPH # 1.2 10^3/uL (1.5-5.0); LYMPH % 9.2 % (24.0-44.0); MEAN CORPUSCULAR HEMOGLOBIN 32.8 pg (27.0-33.0); MEAN CORPUSCULAR HGB CONC 32.3 g/dl (32.0-36.5); MEAN CORPUSCULAR VOLUME 101.6 fl (80.0-96.0); MONO # 1.3 10^3/uL (0.0-0.8); NEUTROPHILS # 10.1 10^3/uL (1.5-8.5); NEUTROPHILS % 79.7 % (36.0-66.0); PLATELET COUNT, AUTOMATED 261 10^3/uL (150-450); RED BLOOD COUNT 3.69 10^6/uL (4.00-5.40); WHITE BLOOD COUNT 12.7 10^3/uL (4.0-10.0)
[2021-10-03] MEDS ORDERED: diazePAM 10MG/2ML SYRINGE (J3360 PER 5MG) IV ONE (17:30)
[2021-10-03] MEDS: MIRTAZAPINE 15 MG TAB PO SCH (17:47)
[2021-10-03 17:54] LABS: ALBUMIN 2.6 GM/DL (3.2-5.2); ALT/SGPT 40 U/L (12-78); BILIRUBIN,TOTAL 0.5 MG/DL (0.2-1.0); BLOOD UREA NITROGEN 16 MG/DL (7-18); CALCIUM LEVEL 8.9 MG/DL (8.8-10.2); CARBON DIOXIDE LEVEL 23 MEQ/L (21-32); CHLORIDE LEVEL 101 MEQ/L (98-107); CREATININE FOR GFR 0.98 MG/DL (0.55-1.30); GLOMERULAR FILTRATION RATE > 60.0 (>45); GLUCOSE, FASTING 67 MG/DL (70-100); MAGNESIUM LEVEL 2.1 MG/DL (1.8-2.4); POTASSIUM SERUM 5.2 MEQ/L (3.5-5.1); SODIUM LEVEL 130 MEQ/L (136-145); TOTAL PROTEIN 5.9 GM/DL (6.4-8.2)
[2021-10-03] MEDS ORDERED: PATIROMER SORBITEX CALCIUM 8.4 GM POWDER PACKET (VELTASSA) PO ONE (18:00)
[2021-10-03 20:14] LABS: CALCIUM LEVEL 8.6 MG/DL (8.8-10.2); CREATININE FOR GFR 1.02 MG/DL (0.55-1.30); GLOMERULAR FILTRATION RATE 57.5 (>45); POTASSIUM SERUM 4.9 MEQ/L (3.5-5.1)
[2021-10-03] MEDS: THIAMINE INJection 500 MG in NS 100 ML IV SCH (21:34)
[2021-10-04] MEDS: HEPARIN SOD (PORCINE) 5000UNITS/ML 1ML VIAL/SYRINGE SC SCH ×3 (04:50→21:54)
[2021-10-04] MEDS: THIAMINE INJection 500 MG in NS 100 ML IV SCH ×3 (04:50→19:36)
[2021-10-04 04:57] VITALS: BP 135/85
[2021-10-04] MEDS: MULTIVITAMINS/MINERALS THERAP 1 TAB PO SCH (09:52)
[2021-10-04] MEDS: IRBESARTAN 150MG TAB PO SCH (09:53)
[2021-10-04] MEDS: FOLIC ACID 1MG TAB PO SCH (09:53)
[2021-10-04] MEDS: VENLAFAXINE **XR** 37.5 MG CAPSULE PO SCH (09:53)
[2021-10-04] MEDS: NYSTATIN 100,000 UNITS/GM TOPICAL PWD 15 GM TOP SCH ×2 (09:56→22:05)
[2021-10-04 16:00] VITALS: BP 130/82
[2021-10-04] MEDS: MIRTAZAPINE 15 MG TAB PO SCH (17:24)
[2021-10-04] MEDS: ACETAMINOPHEN TAB 650MG DOSE (2X325MG) PO PRN (19:36)
[2021-10-04 22:00] VITALS: BP 111/72
[2021-10-04 23:11] LABS: APPEARANCE, URINE MANUAL CLEAR (CLEAR); COLOR, URINE MANUAL YELLOW (YELLOW)
[2021-10-04 23:13] LABS: GLUCOSE, URINE (UA) MANUAL NEGATIVE (NEGATIVE); KETONE, URINE MANUAL NEGATIVE (NEGATIVE); PROTEIN, URINE MANUAL NEGATIVE (NEGATIVE)
[2021-10-04 23:14] LABS: BILIRUBIN, URINE MANUAL NEGATIVE (NEGATIVE); BLOOD URINE MANUAL NEGATIVE (NEGATIVE); LEUKOCYTE ESTERASE, URINE MAN NEGATIVE (NEGATIVE); NITRITE, URINE MANUAL NEGATIVE (NEGATIVE); UROBILINOGEN, URINE MANUAL NORMAL (NORMAL)
[2021-10-05] MEDS: THIAMINE INJection 500 MG in NS 100 ML IV SCH ×3 (03:38→20:34)
[2021-10-05] MEDS: HEPARIN SOD (PORCINE) 5000UNITS/ML 1ML VIAL/SYRINGE SC SCH ×3 (05:41→20:35)
[2021-10-05 06:00] VITALS: BP 136/81
[2021-10-05] MEDS: FOLIC ACID 1MG TAB PO SCH (08:09)
[2021-10-05] MEDS: VENLAFAXINE **XR** 37.5 MG CAPSULE PO SCH (08:10)
[2021-10-05] MEDS: IRBESARTAN 150MG TAB PO SCH (08:10)
[2021-10-05] MEDS: MULTIVITAMINS/MINERALS THERAP 1 TAB PO SCH (08:13)
[2021-10-05] MEDS: NYSTATIN 100,000 UNITS/GM TOPICAL PWD 15 GM TOP SCH ×2 (08:13→21:22)
[2021-10-05 10:16] LABS: VITAMIN B12 LEVEL 1083 PG/ML (247-911)
[2021-10-05 10:45] VITALS: BP 117/73
[2021-10-05] MEDS: MIRTAZAPINE 15 MG TAB PO SCH (18:50)
[2021-10-05 20:00] VITALS: BP 121/76
[2021-10-06 03:29] LABS: BACTERIA, URINE SMALL AMOUNT; MUCUS, URINE LARGE AMOUNT (NEGATIVE); SQUAMOUS EPITHELIAL CELL URINE MOD AMOUNT /hpf (SMALL AMT)
[2021-10-06] MEDS: THIAMINE INJection 500 MG in NS 100 ML IV SCH ×2 (04:50→13:55)
[2021-10-06 06:00] VITALS: BP 121/84
[2021-10-06] MEDS: HEPARIN SOD (PORCINE) 5000UNITS/ML 1ML VIAL/SYRINGE SC SCH ×3 (06:01→20:50)
[2021-10-06 06:24] LABS: BASO % 0.6 % (0.0-1.0); EOS # 0.1 10^3/uL (0.0-0.5); EOS % 0.9 % (0.0-3.0); HEMATOCRIT 32.6 % (36.0-47.0); HEMOGLOBIN 10.7 g/dl (12.0-15.5); LYMPH # 1.7 10^3/uL (1.5-5.0); LYMPH % 25.4 % (24.0-44.0); MEAN CORPUSCULAR HEMOGLOBIN 32.7 pg (27.0-33.0); MEAN CORPUSCULAR HGB CONC 32.8 g/dl (32.0-36.5); MEAN CORPUSCULAR VOLUME 99.7 fl (80.0-96.0); MONO # 0.7 10^3/uL (0.0-0.8); MONO % 10.5 % (2.0-8.0); NEUTROPHILS # 4.2 10^3/uL (1.5-8.5); NEUTROPHILS % 61.7 % (36.0-66.0); PLATELET COUNT, AUTOMATED 219 10^3/uL (150-450); RED BLOOD COUNT 3.27 10^6/uL (4.00-5.40); WHITE BLOOD COUNT 6.9 10^3/uL (4.0-10.0)
[2021-10-06 07:03] LABS: BLOOD UREA NITROGEN 17 MG/DL (7-18); CALCIUM LEVEL 8.4 MG/DL (8.8-10.2); CARBON DIOXIDE LEVEL 23 MEQ/L (21-32); CHLORIDE LEVEL 101 MEQ/L (98-107); CREATININE FOR GFR 0.97 MG/DL (0.55-1.30); GLOMERULAR FILTRATION RATE > 60.0 (>45); GLUCOSE, FASTING 75 MG/DL (70-100); MAGNESIUM LEVEL 1.7 MG/DL (1.8-2.4); PHOSPHORUS LEVEL 3.2 MG/DL (2.5-4.9); POTASSIUM SERUM 3.9 MEQ/L (3.5-5.1); SODIUM LEVEL 131 MEQ/L (136-145)
[2021-10-06] MEDS: MULTIVITAMINS/MINERALS THERAP 1 TAB PO SCH (08:26)
[2021-10-06] MEDS: VENLAFAXINE **XR** 37.5 MG CAPSULE PO SCH (08:26)
[2021-10-06] MEDS: IRBESARTAN 150MG TAB PO SCH (08:26)
[2021-10-06] MEDS: FOLIC ACID 1MG TAB PO SCH (08:26)
[2021-10-06] MEDS: NYSTATIN 100,000 UNITS/GM TOPICAL PWD 15 GM TOP SCH ×2 (08:27→20:05)
[2021-10-06 14:00] VITALS: BP 127/77
[2021-10-06] MEDS ORDERED: diphenhydrAMINE 50MG/ML VIAL (J1200) IV PRN (14:50)
[2021-10-06] MEDS ORDERED: ALBUTEROL SULFATE 2.5 MG/0.5 ML INH NEB SOLN INH PRN (14:50)
[2021-10-06] MEDS ORDERED: EPINEPHrine INJ 1 MG/ML 1ML AMP IM PRN (14:50)
[2021-10-06] MEDS ORDERED: ALBUTEROL 90 MCG/ACT 8GM HFA INHALER INH PRN (14:50)
[2021-10-06] MEDS ORDERED: MAGNESIUM OXIDE 400MG TAB (MAG-OX) PO ONE (14:50)
[2021-10-06] MEDS ORDERED: NS 1,000 ML IV SCH (14:50)
[2021-10-06] MEDS ORDERED: methylPREDNISolone 125MG 2ML VIAL IV PRN (14:50)
[2021-10-06] MEDS ORDERED: BEBTELOVIMAB 175MG 2ML VIAL (EUA) IV ONE (16:00)
[2021-10-06] MEDS: MIRTAZAPINE 15 MG TAB PO SCH (17:37)
[2021-10-06 19:29] VITALS: BP 145/86
[2021-10-07 04:16] VITALS: BP 142/93
[2021-10-07] MEDS: HEPARIN SOD (PORCINE) 5000UNITS/ML 1ML VIAL/SYRINGE SC SCH ×3 (05:53→21:18)
[2021-10-07 08:10] LABS: BASO % 0.5 % (0.0-1.0); EOS # 0.1 10^3/uL (0.0-0.5); EOS % 1.2 % (0.0-3.0); HEMATOCRIT 32.5 % (36.0-47.0); HEMOGLOBIN 10.7 g/dl (12.0-15.5); LYMPH % 34.7 % (24.0-44.0); MEAN CORPUSCULAR HGB CONC 32.9 g/dl (32.0-36.5); MEAN CORPUSCULAR VOLUME 97.3 fl (80.0-96.0); MONO # 0.6 10^3/uL (0.0-0.8); MONO % 10.1 % (2.0-8.0); NEUTROPHILS # 3.1 10^3/uL (1.5-8.5); NEUTROPHILS % 52.5 % (36.0-66.0); PLATELET COUNT, AUTOMATED 214 10^3/uL (150-450); RED BLOOD COUNT 3.34 10^6/uL (4.00-5.40); WHITE BLOOD COUNT 5.8 10^3/uL (4.0-10.0)
[2021-10-07 08:48] LABS: BLOOD UREA NITROGEN 16 MG/DL (7-18); CALCIUM LEVEL 8.7 MG/DL (8.8-10.2); CARBON DIOXIDE LEVEL 23 MEQ/L (21-32); CHLORIDE LEVEL 101 MEQ/L (98-107); CREATININE FOR GFR 0.88 MG/DL (0.55-1.30); GLOMERULAR FILTRATION RATE > 60.0 (>45); GLUCOSE, FASTING 70 MG/DL (70-100); MAGNESIUM LEVEL 1.8 MG/DL (1.8-2.4); POTASSIUM SERUM 4.2 MEQ/L (3.5-5.1); SODIUM LEVEL 134 MEQ/L (136-145)
[2021-10-07] MEDS: VENLAFAXINE **XR** 37.5 MG CAPSULE PO SCH (10:41)
[2021-10-07] MEDS: IRBESARTAN 150MG TAB PO SCH (10:41)
[2021-10-07] MEDS: FOLIC ACID 1MG TAB PO SCH (10:42)
[2021-10-07] MEDS: NYSTATIN 100,000 UNITS/GM TOPICAL PWD 15 GM TOP SCH ×2 (10:42→21:18)
[2021-10-07] MEDS: MULTIVITAMINS/MINERALS THERAP 1 TAB PO SCH (10:42)
[2021-10-07 12:00] VITALS: BP 118/67
[2021-10-07] MEDS: MIRTAZAPINE 15 MG TAB PO SCH (18:00)
[2021-10-07 19:38] VITALS: BP 118/83
[2021-10-08 03:54] VITALS: BP 132/83
[2021-10-08] MEDS: HEPARIN SOD (PORCINE) 5000UNITS/ML 1ML VIAL/SYRINGE SC SCH ×3 (05:31→22:28)
[2021-10-08] MEDS: MULTIVITAMINS/MINERALS THERAP 1 TAB PO SCH (09:35)
[2021-10-08] MEDS: FOLIC ACID 1MG TAB PO SCH (09:35)
[2021-10-08] MEDS: VENLAFAXINE **XR** 37.5 MG CAPSULE PO SCH (09:35)
[2021-10-08] MEDS: NYSTATIN 100,000 UNITS/GM TOPICAL PWD 15 GM TOP SCH ×2 (09:36→22:28)
[2021-10-08] MEDS: IRBESARTAN 150MG TAB PO SCH (09:36)
[2021-10-08 12:00] VITALS: BP 110/79
[2021-10-08] MEDS: MIRTAZAPINE 15 MG TAB PO SCH (18:29)
[2021-10-08 20:00] VITALS: BP 132/86
[2021-10-09 04:00] VITALS: BP 133/76
[2021-10-09] MEDS: HEPARIN SOD (PORCINE) 5000UNITS/ML 1ML VIAL/SYRINGE SC SCH ×3 (06:15→22:59)
[2021-10-09] MEDS: FOLIC ACID 1MG TAB PO SCH (09:14)
[2021-10-09] MEDS: VENLAFAXINE **XR** 37.5 MG CAPSULE PO SCH (09:14)
[2021-10-09] MEDS: MULTIVITAMINS/MINERALS THERAP 1 TAB PO SCH (09:14)
[2021-10-09] MEDS: NYSTATIN 100,000 UNITS/GM TOPICAL PWD 15 GM TOP SCH ×2 (09:17→22:58)
[2021-10-09] MEDS: IRBESARTAN 150MG TAB PO SCH (10:53)
[2021-10-09 12:05] VITALS: BP 113/73
[2021-10-09 12:53] VITALS: BP 138/77
[2021-10-09] MEDS: MIRTAZAPINE 15 MG TAB PO SCH (17:09)
[2021-10-09 19:29] VITALS: BP 120/75
[2021-10-10 04:28] VITALS: BP 154/87
[2021-10-10] MEDS: HEPARIN SOD (PORCINE) 5000UNITS/ML 1ML VIAL/SYRINGE SC SCH ×3 (05:49→22:45)
[2021-10-10 07:07] LABS: HEMATOCRIT 33.5 % (36.0-47.0); HEMOGLOBIN 10.8 g/dl (12.0-15.5); MEAN CORPUSCULAR HEMOGLOBIN 31.6 pg (27.0-33.0); MEAN CORPUSCULAR HGB CONC 32.2 g/dl (32.0-36.5); PLATELET COUNT, AUTOMATED 225 10^3/uL (150-450); RED BLOOD COUNT 3.42 10^6/uL (4.00-5.40); WHITE BLOOD COUNT 5.7 10^3/uL (4.0-10.0)
[2021-10-10 07:35] LABS: BLOOD UREA NITROGEN 14 MG/DL (7-18); CALCIUM LEVEL 8.9 MG/DL (8.8-10.2); CARBON DIOXIDE LEVEL 23 MEQ/L (21-32); CHLORIDE LEVEL 101 MEQ/L (98-107); GLOMERULAR FILTRATION RATE > 60.0 (>45); GLUCOSE, FASTING 84 MG/DL (70-100); MAGNESIUM LEVEL 1.8 MG/DL (1.8-2.4); PHOSPHORUS LEVEL 3.3 MG/DL (2.5-4.9); SODIUM LEVEL 134 MEQ/L (136-145)
[2021-10-10] MEDS: MULTIVITAMINS/MINERALS THERAP 1 TAB PO SCH ×2 (09:00→09:31)
[2021-10-10] MEDS: NYSTATIN 100,000 UNITS/GM TOPICAL PWD 15 GM TOP SCH ×2 (09:31→22:44)
[2021-10-10] MEDS: IRBESARTAN 150MG TAB PO SCH (09:31)
[2021-10-10] MEDS: VENLAFAXINE **XR** 37.5 MG CAPSULE PO SCH (09:31)
[2021-10-10] MEDS: FOLIC ACID 1MG TAB PO SCH (09:31)
[2021-10-10] MEDS ORDERED: FUROSEMIDE 20 MG TAB PO ONE (09:55)
[2021-10-10 14:00] VITALS: BP 109/72
[2021-10-10] MEDS: MIRTAZAPINE 15 MG TAB PO SCH (17:52)
[2021-10-10 20:00] VITALS: BP 125/81
[2021-10-10 23:13] LABS: APPEARANCE, URINE MANUAL HAZY (CLEAR); COLOR, URINE MANUAL YELLOW (YELLOW)
[2021-10-10 23:14] LABS: BILIRUBIN, URINE MANUAL NEGATIVE (NEGATIVE); BLOOD URINE MANUAL POSITIVE (NEGATIVE); GLUCOSE, URINE (UA) MANUAL NEGATIVE (NEGATIVE); KETONE, URINE MANUAL 1+ mg/dL (NEGATIVE); LEUKOCYTE ESTERASE, URINE MAN POSITIVE (NEGATIVE); NITRITE, URINE MANUAL NEGATIVE (NEGATIVE); PROTEIN, URINE MANUAL 1+ mg/dL (NEGATIVE); SPECIFIC GRAVITY,URINE MANUAL 1.025 (1.002-1.035); UROBILINOGEN, URINE MANUAL NORMAL (NORMAL)
[2021-10-10 23:20] LABS: WBC, URINE TNTC /hpf (0-3)
[2021-10-10 23:21] LABS: BACTERIA, URINE SMALL AMOUNT; MUCUS, URINE MOD AMOUNT (NEGATIVE); SQUAMOUS EPITHELIAL CELL URINE SMALL AMOUNT /hpf (SMALL AMT)
[2021-10-11 04:00] VITALS: BP 132/96
[2021-10-11] MEDS: HEPARIN SOD (PORCINE) 5000UNITS/ML 1ML VIAL/SYRINGE SC SCH ×3 (05:46→23:02)
[2021-10-11] MEDS: MULTIVITAMINS/MINERALS THERAP 1 TAB PO SCH (09:46)
[2021-10-11] MEDS: VENLAFAXINE **XR** 37.5 MG CAPSULE PO SCH (09:47)
[2021-10-11] MEDS: FOLIC ACID 1MG TAB PO SCH (09:47)
[2021-10-11] MEDS: NYSTATIN 100,000 UNITS/GM TOPICAL PWD 15 GM TOP SCH ×2 (09:47→23:03)
[2021-10-11] MEDS: IRBESARTAN 150MG TAB PO SCH (09:47)
[2021-10-11 12:00] VITALS: BP 128/84
[2021-10-11 13:15] VITALS: BP 150/100
[2021-10-11] MEDS: LevoFLOXacin 750 MG TABLET PO SCH (16:06)
[2021-10-11] MEDS: DOCUSATE SODIUM 100MG CAPSULE PO SCH ×2 (16:06→23:02)
[2021-10-11] MEDS: FUROSEMIDE 20 MG TAB PO SCH (16:06)
[2021-10-11] MEDS: MIRTAZAPINE 15 MG TAB PO SCH (18:35)
[2021-10-11 20:31] VITALS: BP 102/72
[2021-10-12] MEDS: ACETAMINOPHEN TAB 650MG DOSE (2X325MG) PO PRN (02:01)
[2021-10-12 02:30] VITALS: BP 104/72
[2021-10-12] MEDS: NS 1,000 ML IV SCH ×2 (04:12→11:37)
[2021-10-12] MEDS: LevoFLOXacin 750 MG TABLET PO SCH (06:46)
[2021-10-12] MEDS: HEPARIN SOD (PORCINE) 5000UNITS/ML 1ML VIAL/SYRINGE SC SCH ×3 (06:47→20:14)
[2021-10-12 07:28] LABS: HEMOGLOBIN 11.5 g/dl (12.0-15.5); MEAN CORPUSCULAR HEMOGLOBIN 31.7 pg (27.0-33.0); MEAN CORPUSCULAR HGB CONC 31.9 g/dl (32.0-36.5); MEAN CORPUSCULAR VOLUME 99.2 fl (80.0-96.0); PLATELET COUNT, AUTOMATED 210 10^3/uL (150-450); RED BLOOD COUNT 3.63 10^6/uL (4.00-5.40); WHITE BLOOD COUNT 6.7 10^3/uL (4.0-10.0)
[2021-10-12 07:48] LABS: CALCIUM LEVEL 8.8 MG/DL (8.8-10.2); CREATININE FOR GFR 1.16 MG/DL (0.55-1.30); GLOMERULAR FILTRATION RATE 49.6 (>45); MAGNESIUM LEVEL 1.7 MG/DL (1.8-2.4); PHOSPHORUS LEVEL 3.3 MG/DL (2.5-4.9); POTASSIUM SERUM 4.1 MEQ/L (3.5-5.1)
[2021-10-12] MEDS: DOCUSATE SODIUM 100MG CAPSULE PO SCH ×2 (08:21→20:19)
[2021-10-12] MEDS: NYSTATIN 100,000 UNITS/GM TOPICAL PWD 15 GM TOP SCH ×2 (08:21→20:14)
[2021-10-12] MEDS: FUROSEMIDE 20 MG TAB PO SCH (08:21)
[2021-10-12] MEDS: FOLIC ACID 1MG TAB PO SCH (08:21)
[2021-10-12] MEDS: MULTIVITAMINS/MINERALS THERAP 1 TAB PO SCH (08:21)
[2021-10-12] MEDS: VENLAFAXINE **XR** 37.5 MG CAPSULE PO SCH (08:21)
[2021-10-12] MEDS: IRBESARTAN 150MG TAB PO SCH (08:54)
[2021-10-12 14:01] VITALS: BP 108/69
[2021-10-12] MEDS ORDERED: MAGNESIUM OXIDE 400MG TAB (MAG-OX) PO ONE (15:55)
[2021-10-12] MEDS: MIRTAZAPINE 15 MG TAB PO SCH (17:03)
[2021-10-12 20:00] VITALS: BP 114/67
[2021-10-13 04:00] VITALS: BP 138/89
[2021-10-13] MEDS: LevoFLOXacin 750 MG TABLET PO SCH (05:35)
[2021-10-13] MEDS: HEPARIN SOD (PORCINE) 5000UNITS/ML 1ML VIAL/SYRINGE SC SCH ×3 (05:36→22:49)
[2021-10-13 05:57] LABS: HEMATOCRIT 31.2 % (36.0-47.0); HEMOGLOBIN 10.4 g/dl (12.0-15.5); MEAN CORPUSCULAR HEMOGLOBIN 32.4 pg (27.0-33.0); MEAN CORPUSCULAR HGB CONC 33.3 g/dl (32.0-36.5); MEAN CORPUSCULAR VOLUME 97.2 fl (80.0-96.0); PLATELET COUNT, AUTOMATED 174 10^3/uL (150-450); RED BLOOD COUNT 3.21 10^6/uL (4.00-5.40); WHITE BLOOD COUNT 4.7 10^3/uL (4.0-10.0)
[2021-10-13 06:51] LABS: GLOMERULAR FILTRATION RATE 58.9 (>45)
[2021-10-13 06:52] LABS: CALCIUM LEVEL 8.7 MG/DL (8.8-10.2); MAGNESIUM LEVEL 1.6 MG/DL (1.8-2.4); PHOSPHORUS LEVEL 3.3 MG/DL (2.5-4.9)
[2021-10-13] MEDS ORDERED: IRBESARTAN 150MG TAB PO SCH (09:00)
[2021-10-13] MEDS: FOLIC ACID 1MG TAB PO SCH (09:15)
[2021-10-13] MEDS: DOCUSATE SODIUM 100MG CAPSULE PO SCH ×2 (09:15→21:16)
[2021-10-13] MEDS: VENLAFAXINE **XR** 37.5 MG CAPSULE PO SCH (09:15)
[2021-10-13] MEDS: FUROSEMIDE 20 MG TAB PO SCH (09:16)
[2021-10-13] MEDS: MULTIVITAMINS/MINERALS THERAP 1 TAB PO SCH (09:16)
[2021-10-13] MEDS: NYSTATIN 100,000 UNITS/GM TOPICAL PWD 15 GM TOP SCH ×2 (09:18→21:16)
[2021-10-13 09:19] VITALS: BP 113/80
[2021-10-13 14:57] VITALS: BP 126/78
[2021-10-13] MEDS: MIRTAZAPINE 15 MG TAB PO SCH (17:59)
[2021-10-13] MEDS ORDERED: LR 500 ML IV ONE (18:05)
[2021-10-13 19:26] VITALS: BP 118/86
[2021-10-13] MEDS ORDERED: FLUCONAZOLE 50MG TABLET PO ONE (21:00)
[2021-10-14 03:58] VITALS: BP 117/61
[2021-10-14] MEDS: HEPARIN SOD (PORCINE) 5000UNITS/ML 1ML VIAL/SYRINGE SC SCH ×3 (05:50→20:29)
[2021-10-14] MEDS: LevoFLOXacin 750 MG TABLET PO SCH (05:50)
[2021-10-14 06:22] LABS: BASO # 0.1 10^3/uL (0.0-0.2); BASO % 1.1 % (0.0-1.0); EOS # 0.1 10^3/uL (0.0-0.5); EOS % 1.8 % (0.0-3.0); HEMATOCRIT 31.8 % (36.0-47.0); HEMOGLOBIN 10.4 g/dl (12.0-15.5); LYMPH # 1.4 10^3/uL (1.5-5.0); LYMPH % 32.1 % (24.0-44.0); MEAN CORPUSCULAR HEMOGLOBIN 31.8 pg (27.0-33.0); MEAN CORPUSCULAR HGB CONC 32.7 g/dl (32.0-36.5); MEAN CORPUSCULAR VOLUME 97.2 fl (80.0-96.0); MONO # 0.6 10^3/uL (0.0-0.8); MONO % 13.6 % (2.0-8.0); NEUTROPHILS # 2.2 10^3/uL (1.5-8.5); NEUTROPHILS % 49.6 % (36.0-66.0); PLATELET COUNT, AUTOMATED 178 10^3/uL (150-450); RED BLOOD COUNT 3.27 10^6/uL (4.00-5.40); WHITE BLOOD COUNT 4.5 10^3/uL (4.0-10.0)
[2021-10-14 07:10] LABS: CALCIUM LEVEL 8.7 MG/DL (8.8-10.2); CREATININE FOR GFR 1.07 MG/DL (0.55-1.30); GLOMERULAR FILTRATION RATE 54.5 (>45); MAGNESIUM LEVEL 1.6 MG/DL (1.8-2.4); POTASSIUM SERUM 3.9 MEQ/L (3.5-5.1)
[2021-10-14] MEDS: DOCUSATE SODIUM 100MG CAPSULE PO SCH ×2 (09:17→19:36)
[2021-10-14] MEDS: FOLIC ACID 1MG TAB PO SCH (09:17)
[2021-10-14] MEDS: VENLAFAXINE **XR** 37.5 MG CAPSULE PO SCH (09:18)
[2021-10-14] MEDS: MULTIVITAMINS/MINERALS THERAP 1 TAB PO SCH (09:18)
[2021-10-14] MEDS: NYSTATIN 100,000 UNITS/GM TOPICAL PWD 15 GM TOP SCH ×2 (09:18→19:37)
[2021-10-14 12:00] VITALS: BP 130/76
[2021-10-14 15:13] VITALS: BP_SYST 105; BP_SYST 116; BP_SYST 129; BP_DIAS 52; BP_DIAS 75; BP_DIAS 88
[2021-10-14] MEDS ORDERED: LR 500 ML IV SCH (15:30)
[2021-10-14] MEDS ORDERED: COVID-19 VACC, MRNA(PFIZER)/PF 30MCG 0.3ML VIAL (EUA) IM ONE (17:00)
[2021-10-14] MEDS: MIDODRINE 5 MG TAB PO SCH (17:05)
[2021-10-14] MEDS: MIRTAZAPINE 15 MG TAB PO SCH (17:05)
[2021-10-14] MEDS: DRONABINOL 2.5MG CAP (MARINOL) PO SCH (18:47)
[2021-10-14] MEDS: MIRALAX *UNIT DOSE* 17GM PACKET PO SCH (19:37)
[2021-10-14 20:00] VITALS: BP 121/71
[2021-10-15] MEDS: LevoFLOXacin 750 MG TABLET PO SCH (05:18)
[2021-10-15] MEDS: HEPARIN SOD (PORCINE) 5000UNITS/ML 1ML VIAL/SYRINGE SC SCH ×3 (05:19→21:12)
[2021-10-15 06:00] VITALS: BP 123/76
[2021-10-15] MEDS: FOLIC ACID 1MG TAB PO SCH (08:22)
[2021-10-15] MEDS: MAGNESIUM OXIDE 400MG TAB (MAG-OX) PO SCH ×2 (08:22→21:12)
[2021-10-15] MEDS: DRONABINOL 2.5MG CAP (MARINOL) PO SCH ×2 (08:22→12:12)
[2021-10-15] MEDS: DOCUSATE SODIUM 100MG CAPSULE PO SCH ×2 (08:22→21:12)
[2021-10-15] MEDS: MIRALAX *UNIT DOSE* 17GM PACKET PO SCH ×2 (08:23→21:12)
[2021-10-15] MEDS: MULTIVITAMINS/MINERALS THERAP 1 TAB PO SCH (08:23)
[2021-10-15] MEDS: VENLAFAXINE **XR** 37.5 MG CAPSULE PO SCH (08:23)
[2021-10-15] MEDS: NYSTATIN 100,000 UNITS/GM TOPICAL PWD 15 GM TOP SCH ×2 (08:23→21:12)
[2021-10-15] MEDS: MIDODRINE 5 MG TAB PO SCH ×3 (08:24→16:07)
[2021-10-15 08:30] VITALS: BP_SYST 111; BP_SYST 126; BP_DIAS 75; BP_DIAS 81
[2021-10-15 12:00] VITALS: BP 127/81
[2021-10-15] MEDS ORDERED: LR 1,000 ML IV ONE (14:05)
[2021-10-15 16:00] VITALS: BP 104/67
[2021-10-15] MEDS ORDERED: COLA100C5 PO (17:41)
[2021-10-15] MEDS ORDERED: VENL37.598 PO (17:41)
[2021-10-15] MEDS ORDERED: FOLI1TAB11 PO (17:41)
[2021-10-15] MEDS ORDERED: VITMTA PO (17:41)
[2021-10-15] MEDS ORDERED: MIDO5TA PO (17:41)
[2021-10-15] MEDS ORDERED: MIRA1POW3 PO (17:41)
[2021-10-15] MEDS ORDERED: THIA100T7 PO (17:41)
[2021-10-15 20:00] VITALS: BP 126/78
[2021-10-16 06:00] VITALS: BP 166/85
[2021-10-16] MEDS: HEPARIN SOD (PORCINE) 5000UNITS/ML 1ML VIAL/SYRINGE SC SCH (06:08)
[2021-10-16] MEDS: MIDODRINE 5 MG TAB PO SCH ×2 (08:00→09:40)
[2021-10-16] MEDS: FOLIC ACID 1MG TAB PO SCH (09:00)
[2021-10-16] MEDS: MIRALAX *UNIT DOSE* 17GM PACKET PO SCH (09:00)
[2021-10-16] MEDS: DOCUSATE SODIUM 100MG CAPSULE PO SCH (09:40)
[2021-10-16] MEDS: MULTIVITAMINS/MINERALS THERAP 1 TAB PO SCH (09:40)
[2021-10-16] MEDS: VENLAFAXINE **XR** 37.5 MG CAPSULE PO SCH (09:40)
[2021-10-16] MEDS: MAGNESIUM OXIDE 400MG TAB (MAG-OX) PO SCH (09:41)
[2021-10-16] MEDS: NYSTATIN 100,000 UNITS/GM TOPICAL PWD 15 GM TOP SCH (09:44)
== END 2021-10-16 11:41 | DRG 640 ==
LOC: M ED 19:25 → M ED INP 23:59 → M MSPAV 09-25 02:05 → M PCU 09-25 09:01 → M MSPAV 09-26 16:27 → M 4MAIN 10-05 10:33
PROVIDERS: ADMIT Internal Medicine; ATTEND Student in an Organized Health Care Education/Training Program
DX: E87.6 Hypokalemia (principal); U07.1 COVID-19; N39.0 Urinary tract infection, site not specified; B49 Unspecified mycosis; F32.2 Major depressive disorder, single episode, severe without psychotic features; E87.1 Hypo-osmolality and hyponatremia; R53.81 Other malaise; E83.42 Hypomagnesemia; I10 Essential (primary) hypertension; F10.10 Alcohol abuse, uncomplicated; L30.4 Erythema intertrigo; R63.4 Abnormal weight loss; J02.9 Acute pharyngitis, unspecified; R33.9 Retention of urine, unspecified; I95.1 Orthostatic hypotension; R60.9 Edema, unspecified; E87.5 Hyperkalemia; K59.00 Constipation, unspecified; Z79.899 Other long term (current) drug therapy; Z63.4 Disappearance and death of family member; F41.9 Anxiety disorder, unspecified

== ENCOUNTER 2023-08-31 13:05 | Inpatient (IN) | payer MEDICARE, OTHER, MEDICAID ==
[~2023-08-31] VITALS: Ht 162.6 cm; Wt 125.0 kg
[~2023-08-31 13:05] MED LIST changes: +COLA100C5 PO; +FOLI1TAB11 PO; +IRBE150T27 PO; +IRBE300T25 PO; -IRBE300T7 PO; +MIDO5TA PO; +MIRA33506 PO; +THIA100T7 PO; +VENL37.598 PO; +VITMTA PO
[2023-08-31 14:38] LABS: BASO % 0.7 % (0.0-1.0); EOS # 0.1 10^3/uL (0.0-0.5); EOS % 0.8 % (0.0-3.0); HEMATOCRIT 39.5 % (36.0-47.0); HEMOGLOBIN 12.7 g/dl (12.0-15.5); LYMPH # 1.5 10^3/uL (1.5-5.0); LYMPH % 24.6 % (24.0-44.0); MEAN CORPUSCULAR HEMOGLOBIN 28.9 pg (27.0-33.0); MEAN CORPUSCULAR HGB CONC 32.2 g/dl (32.0-36.5); MEAN CORPUSCULAR VOLUME 89.8 fl (80.0-96.0); MONO # 0.6 10^3/uL (0.0-0.8); MONO % 9.7 % (2.0-8.0); NEUTROPHILS # 3.8 10^3/uL (1.5-8.5); NEUTROPHILS % 63.5 % (36.0-66.0); PLATELET COUNT, AUTOMATED 237 10^3/uL (150-450); WHITE BLOOD COUNT 5.9 10^3/uL (4.0-10.0)
[2023-08-31] MEDS: NS 1,000 ML IV ONE (17:12)
[2023-08-31] MEDS: ONDANSETRON 4MG 2ML VIAL IV ONE (17:12)
[2023-08-31] MEDS: MORPHINE 2 MG/ML 1ML VIAL IV ONE (17:12)
[2023-08-31 17:41] LABS: CK-MB VALUE MASS < 1.0 NG/ML (<3.6); LIPASE 75 U/L (12-53)
[2023-08-31 17:43] LABS: CPK CREATINE PHOSPHOKINASE 132 U/L (34-145); MB/CK RELATIVE INDEX 0.75 (< OR =4)
[2023-08-31 17:50] LABS: ALBUMIN 3.4 G/DL (3.2-5.2); ALKALINE PHOSPHATASE 121 U/L (46-116); ALT/SGPT 61 U/L (7.0-40); AST/SGOT 34 U/L (<34); BILIRUBIN,DIRECT 0.2 MG/DL (<0.4); BILIRUBIN,TOTAL 0.5 MG/DL (0.3-1.2); BLOOD UREA NITROGEN 12 MG/DL (9-23); CALCIUM LEVEL 9.2 MG/DL (8.3-10.6); CARBON DIOXIDE LEVEL 30 MMOL/L (20-31); CHLORIDE LEVEL 103 MMOL/L (98-107); CREATININE FOR GFR 0.96 MG/DL (0.55-1.30); GLOMERULAR FILTRATION RATE > 60.0 (>45); GLUCOSE, FASTING 105 MG/DL (74-106); SODIUM LEVEL 139 MMOL/L (136-145); TOTAL PROTEIN 6.5 G/DL (5.7-8.2)
[2023-08-31] MEDS ORDERED: ISOVUE-370 76% 100ML VIAL As Ordered ONE (18:20)
[2023-08-31 19:27] LABS: CK-MB VALUE MASS < 1.0 NG/ML (<3.6)
[2023-08-31 19:30] LABS: CPK CREATINE PHOSPHOKINASE 120 U/L (34-145); MB/CK RELATIVE INDEX 0.83 (< OR =4)
[2023-09-01] MEDS: ACETAMINOPHEN TAB 650MG DOSE (2X325MG) PO PRN ×2 (01:43→09:59)
[2023-09-01 02:51] LABS: HEMATOCRIT 40.4 % (36.0-47.0); HEMOGLOBIN 12.5 g/dl (12.0-15.5); MEAN CORPUSCULAR HEMOGLOBIN 28.5 pg (27.0-33.0); MEAN CORPUSCULAR HGB CONC 30.9 g/dl (32.0-36.5); MEAN CORPUSCULAR VOLUME 92.2 fl (80.0-96.0); PLATELET COUNT, AUTOMATED 221 10^3/uL (150-450); RED BLOOD COUNT 4.38 10^6/uL (4.00-5.40); WHITE BLOOD COUNT 6.1 10^3/uL (4.0-10.0)
[2023-09-01] MEDS: ONDANSETRON 4MG 2ML VIAL IV PRN (02:52)
[2023-09-01] MEDS: LR 1,000 ML IV SCH (02:52)
[2023-09-01] MEDS: MORPHINE 2 MG/ML 1ML VIAL IV PRN (02:53)
[2023-09-01] MEDS: ENOXAPARIN 40MG/0.4ML SYRINGE (J1650 PER 10MG) SC SCH (02:54)
[2023-09-01 03:15] LABS: ALBUMIN 3.4 G/DL (3.2-5.2); BILIRUBIN,TOTAL 0.5 MG/DL (0.3-1.2); CALCIUM LEVEL 9.2 MG/DL (8.3-10.6); CREATININE FOR GFR 0.99 MG/DL (0.55-1.30); GLOMERULAR FILTRATION RATE 59.4 (>45); MAGNESIUM LEVEL 2.2 MG/DL (1.8-2.4); POTASSIUM SERUM 4.7 MMOL/L (3.5-5.1); TOTAL PROTEIN 6.4 G/DL (5.7-8.2)
[2023-09-01] MEDS ORDERED: DONE5TAB82 PO (06:19)
[2023-09-01] MEDS ORDERED: BUSP5TA PO (06:19)
[2023-09-01] MEDS ORDERED: VENL37.598 PO (06:19)
[2023-09-01] MEDS ORDERED: MELA3TAB30 PO (06:19)
[2023-09-01] MEDS ORDERED: MELO7.5T35 PO (06:19)
[2023-09-01] MEDS ORDERED: METRCRM EXT (06:19)
[2023-09-01] MEDS ORDERED: MIRA33506 PO (06:19)
[2023-09-01] MEDS ORDERED: TRAZ-186 PO (06:19)
[2023-09-01] MEDS ORDERED: GABA-1171 PO (06:19)
[2023-09-01] MEDS ORDERED: HOME MED LIST COMPLETE! XX SCH (06:20)
[2023-09-01] MEDS: VENLAFAXINE **XR** 37.5 MG CAPSULE PO SCH (09:18)
[2023-09-01] MEDS: busPIRone 10 MG TAB PO SCH (09:19)
[2023-09-01] MEDS: GABAPENTIN 100 MG CAP PO SCH (09:19)
[2023-09-01] MEDS: PANTOPRAZOLE 40MG VIAL IV SCH (09:20)
[2023-09-01] MEDS: KETOROLAC 30 MG/ML 1ML VIAL IV PRN (10:00)
[2023-09-01 10:40] VITALS: BP 140/73; TEMP 97.6; O2SAT 98
[2023-09-01 19:49] VITALS: BP 153/81; TEMP 97.9; O2SAT 97
[2023-09-01] MEDS: traZODone 25MG PER 1/2 TABLET PO SCH (20:10)
[2023-09-01] MEDS: RAMELTEON 8 MG TAB (ROZEREM) PO PRN (22:11)
[2023-09-02] MEDS ORDERED: busPIRone 5 MG TAB As Ordered ONE (10:34)
[2023-09-02] MEDS ORDERED: GABAPENTIN 100 MG CAP As Ordered ONE (10:35)
[2023-09-02] MEDS ORDERED: PANTOPRAZOLE 40MG VIAL As Ordered ONE (10:35)
[2023-09-02 12:00] VITALS: BP 142/78; TEMP 97.7; O2SAT 96
[2023-09-03 05:51] LABS: BASO % 0.7 % (0.0-1.0); EOS # 0.1 10^3/uL (0.0-0.5); EOS % 1.8 % (0.0-3.0); HEMATOCRIT 38.8 % (36.0-47.0); HEMOGLOBIN 12.2 g/dl (12.0-15.5); LYMPH # 2.2 10^3/uL (1.5-5.0); LYMPH % 35.6 % (24.0-44.0); MEAN CORPUSCULAR HEMOGLOBIN 28.6 pg (27.0-33.0); MEAN CORPUSCULAR HGB CONC 31.4 g/dl (32.0-36.5); MEAN CORPUSCULAR VOLUME 91.1 fl (80.0-96.0); MONO # 0.6 10^3/uL (0.0-0.8); MONO % 9.7 % (2.0-8.0); NEUTROPHILS # 3.1 10^3/uL (1.5-8.5); NEUTROPHILS % 51.4 % (36.0-66.0); PLATELET COUNT, AUTOMATED 217 10^3/uL (150-450); RED BLOOD COUNT 4.26 10^6/uL (4.00-5.40); WHITE BLOOD COUNT 6.1 10^3/uL (4.0-10.0)
[2023-09-03 06:18] LABS: CREATININE FOR GFR 1.06 MG/DL (0.55-1.30); GLOMERULAR FILTRATION RATE 54.9 (>45); POTASSIUM SERUM 4.1 MMOL/L (3.5-5.1)
[2023-09-03 12:35] VITALS: BP 140/78; TEMP 96.8; O2SAT 96
[2023-09-03 20:00] VITALS: BP 114/67; TEMP 97.7; O2SAT 96
[2023-09-04 04:00] VITALS: BP 114/64; TEMP 97.3; O2SAT 98
[2023-09-04 11:11] LABS: BASO % 0.6 % (0.0-1.0); EOS # 0.1 10^3/uL (0.0-0.5); EOS % 2.2 % (0.0-3.0); HEMATOCRIT 40.9 % (36.0-47.0); HEMOGLOBIN 12.7 g/dl (12.0-15.5); LYMPH # 1.5 10^3/uL (1.5-5.0); LYMPH % 29.4 % (24.0-44.0); MEAN CORPUSCULAR HEMOGLOBIN 28.1 pg (27.0-33.0); MEAN CORPUSCULAR HGB CONC 31.1 g/dl (32.0-36.5); MEAN CORPUSCULAR VOLUME 90.5 fl (80.0-96.0); MONO # 0.5 10^3/uL (0.0-0.8); MONO % 9.1 % (2.0-8.0); NEUTROPHILS # 2.8 10^3/uL (1.5-8.5); NEUTROPHILS % 57.3 % (36.0-66.0); PLATELET COUNT, AUTOMATED 211 10^3/uL (150-450); RED BLOOD COUNT 4.52 10^6/uL (4.00-5.40)
[2023-09-04 11:41] LABS: CALCIUM LEVEL 8.8 MG/DL (8.3-10.6); CREATININE FOR GFR 1.01 MG/DL (0.55-1.30); POTASSIUM SERUM 4.6 MMOL/L (3.5-5.1)
[2023-09-04 12:00] VITALS: BP 131/72; TEMP 97; O2SAT 98
[2023-09-04 19:41] VITALS: BP 135/69; TEMP 97.7; O2SAT 94
[2023-09-05 04:45] VITALS: BP 129/68; TEMP 97.5; O2SAT 100
[2023-09-05 07:25] LABS: BASO # 0.1 10^3/uL (0.0-0.2); BASO % 0.9 % (0.0-1.0); EOS # 0.1 10^3/uL (0.0-0.5); EOS % 2.4 % (0.0-3.0); HEMATOCRIT 39.7 % (36.0-47.0); HEMOGLOBIN 12.3 g/dl (12.0-15.5); LYMPH # 1.7 10^3/uL (1.5-5.0); LYMPH % 31.2 % (24.0-44.0); MEAN CORPUSCULAR HEMOGLOBIN 28.5 pg (27.0-33.0); MEAN CORPUSCULAR VOLUME 91.9 fl (80.0-96.0); MONO # 0.5 10^3/uL (0.0-0.8); MONO % 9.2 % (2.0-8.0); NEUTROPHILS % 55.4 % (36.0-66.0); PLATELET COUNT, AUTOMATED 219 10^3/uL (150-450); RED BLOOD COUNT 4.32 10^6/uL (4.00-5.40); WHITE BLOOD COUNT 5.4 10^3/uL (4.0-10.0)
[2023-09-05 07:49] LABS: CALCIUM LEVEL 8.8 MG/DL (8.3-10.6); CREATININE FOR GFR 1.01 MG/DL (0.55-1.30); POTASSIUM SERUM 3.8 MMOL/L (3.5-5.1)
[2023-09-05] MEDS: MORPHINE 4 MG/ML 1ML VIAL IV PRN (09:03)
[2023-09-05 12:00] VITALS: BP 121/65; TEMP 97.7; O2SAT 96
[2023-09-05 19:23] VITALS: BP 138/84; TEMP 97.2; O2SAT 94
[2023-09-06 04:28] VITALS: BP 142/84; TEMP 97.9; O2SAT 98
[2023-09-06 06:32] LABS: BASO % 0.7 % (0.0-1.0); EOS # 0.1 10^3/uL (0.0-0.5); EOS % 1.8 % (0.0-3.0); HEMATOCRIT 38.9 % (36.0-47.0); HEMOGLOBIN 12.2 g/dl (12.0-15.5); LYMPH # 1.5 10^3/uL (1.5-5.0); LYMPH % 23.9 % (24.0-44.0); MEAN CORPUSCULAR HEMOGLOBIN 28.9 pg (27.0-33.0); MEAN CORPUSCULAR HGB CONC 31.4 g/dl (32.0-36.5); MEAN CORPUSCULAR VOLUME 92.2 fl (80.0-96.0); MONO # 0.5 10^3/uL (0.0-0.8); MONO % 8.9 % (2.0-8.0); NEUTROPHILS # 3.9 10^3/uL (1.5-8.5); NEUTROPHILS % 63.9 % (36.0-66.0); PLATELET COUNT, AUTOMATED 198 10^3/uL (150-450); RED BLOOD COUNT 4.22 10^6/uL (4.00-5.40); WHITE BLOOD COUNT 6.1 10^3/uL (4.0-10.0)
[2023-09-06 07:05] LABS: CREATININE FOR GFR 1.12 MG/DL (0.55-1.30); GLOMERULAR FILTRATION RATE 51.5 (>45)
[2023-09-06] MEDS: PANTOPRAZOLE 40MG TAB (PROTONIX) PO SCH (08:17)
== END 2023-09-06 11:50 | DRG 439 ==
LOC: M ED 13:05 → EDBD 13:05 → M ED INP 13:06 → OBSVTOIN 16:52 → M MS4PR 09-01 10:39 → M MS5PR 09-01 16:11
PROVIDERS: ADMIT Preventive Medicine Undersea and Hyperbaric Medicine; ATTEND Student in an Organized Health Care Education/Training Program
DX: K85.90 Acute pancreatitis without necrosis or infection, unspecified (principal); F33.9 Major depressive disorder, recurrent, unspecified; K82.1 Hydrops of gallbladder; Z68.42 Body mass index [BMI] 45.0-49.9, adult; K76.0 Fatty (change of) liver, not elsewhere classified; I10 Essential (primary) hypertension; E66.01 Morbid (severe) obesity due to excess calories; R29.6 Repeated falls; M77.9 Enthesopathy, unspecified; F03.90 Unspecified dementia, unspecified severity, without behavioral disturbance, psychotic disturbance, mood disturbance, and anxiety; K80.20 Calculus of gallbladder without cholecystitis without obstruction; R26.89 Other abnormalities of gait and mobility; Z79.899 Other long term (current) drug therapy; K57.90 Diverticulosis of intestine, part unspecified, without perforation or abscess without bleeding; M16.0 Bilateral primary osteoarthritis of hip

== ENCOUNTER → 2023-09-06 | Outpatient (REF) ==
[~2023-09-06] MED LIST changes: +BUSP5TA PO; +DONE5TAB82 PO; +GABA-1171 PO; +MELA3TAB30 PO; +MELO7.5T35 PO; +METRCRM EXT; +TRAZ-186 PO
== END ==
PROVIDERS: ATTEND Internal Medicine
DX: Z01.89 Encounter for other specified special examinations (principal); Z53.8 Procedure and treatment not carried out for other reasons

== ENCOUNTER → 2023-09-07 | Outpatient (REF) ==
[2023-09-07 10:26] LABS: HEMATOCRIT 41.3 % (36.0-47.0); HEMOGLOBIN 12.5 g/dl (12.0-15.5); MEAN CORPUSCULAR HEMOGLOBIN 28.5 pg (27.0-33.0); MEAN CORPUSCULAR HGB CONC 30.3 g/dl (32.0-36.5); MEAN CORPUSCULAR VOLUME 94.1 fl (80.0-96.0); PLATELET COUNT, AUTOMATED 189 10^3/uL (150-450); RED BLOOD COUNT 4.39 10^6/uL (4.00-5.40); WHITE BLOOD COUNT 5.4 10^3/uL (4.0-10.0)
[2023-09-07 10:49] LABS: ALT/SGPT 40 U/L (7.0-40); AST/SGOT 25 U/L (<34); BLOOD UREA NITROGEN 13 MG/DL (9-23); CALCIUM LEVEL 8.7 MG/DL (8.3-10.6); CARBON DIOXIDE LEVEL 29 MMOL/L (20-31); CHLORIDE LEVEL 104 MMOL/L (98-107); CREATININE FOR GFR 0.98 MG/DL (0.55-1.30); GLOMERULAR FILTRATION RATE > 60.0 (>45); GLUCOSE, FASTING 112 MG/DL (74-106); POTASSIUM SERUM 4.4 MMOL/L (3.5-5.1); SODIUM LEVEL 139 MMOL/L (136-145)
== END ==
PROVIDERS: ATTEND Internal Medicine
DX: K85.90 Acute pancreatitis without necrosis or infection, unspecified (principal)

== ENCOUNTER → 2023-09-21 | Outpatient (REF) | PROVIDERS: ATTEND Physician Assistant | DX: K80.20 Calculus of gallbladder without cholecystitis without obstruction (principal); Z53.8 Procedure and treatment not carried out for other reasons ==

== ENCOUNTER → 2023-10-05 | Outpatient (REF) ==
[2023-10-05 10:31] LABS: HEMATOCRIT 43.3 % (36.0-47.0); HEMOGLOBIN 13.5 g/dl (12.0-15.5); MEAN CORPUSCULAR HEMOGLOBIN 28.2 pg (27.0-33.0); MEAN CORPUSCULAR HGB CONC 31.2 g/dl (32.0-36.5); MEAN CORPUSCULAR VOLUME 90.4 fl (80.0-96.0); PLATELET COUNT, AUTOMATED 187 10^3/uL (150-450); RED BLOOD COUNT 4.79 10^6/uL (4.00-5.40); WHITE BLOOD COUNT 5.6 10^3/uL (4.0-10.0)
[2023-10-05 10:58] LABS: ALBUMIN 3.8 G/DL (3.2-5.2); BILIRUBIN,DIRECT 0.1 MG/DL (<0.4); BILIRUBIN,TOTAL 0.4 MG/DL (0.3-1.2); CALCIUM LEVEL 9.4 MG/DL (8.3-10.6); CREATININE FOR GFR 0.99 MG/DL (0.55-1.30); GLOMERULAR FILTRATION RATE 59.2 (>45); POTASSIUM SERUM 4.1 MMOL/L (3.5-5.1); TOTAL PROTEIN 7.1 G/DL (5.7-8.2)
== END ==
PROVIDERS: ATTEND Physician Assistant
DX: K80.20 Calculus of gallbladder without cholecystitis without obstruction (principal)

== ENCOUNTER 2023-10-13 22:50 | Emergency (ER) | payer MEDICARE, OTHER, MEDICAID ==
[~2023-10-13] VITALS: Ht 177.8 cm; Wt 125.0 kg
[2023-10-13 23:12] VITALS: TEMP 97.4
[2023-10-13 23:33] LABS: BASO # 0.1 10^3/uL (0.0-0.2); BASO % 0.8 % (0.0-1.0); EOS # 0.1 10^3/uL (0.0-0.5); EOS % 1.6 % (0.0-3.0); HEMATOCRIT 44.6 % (36.0-47.0); HEMOGLOBIN 14.1 g/dl (12.0-15.5); LYMPH # 2.8 10^3/uL (1.5-5.0); LYMPH % 36.2 % (24.0-44.0); MEAN CORPUSCULAR HEMOGLOBIN 28.7 pg (27.0-33.0); MEAN CORPUSCULAR HGB CONC 31.6 g/dl (32.0-36.5); MEAN CORPUSCULAR VOLUME 90.7 fl (80.0-96.0); MONO # 0.6 10^3/uL (0.0-0.8); MONO % 7.2 % (2.0-8.0); NEUTROPHILS # 4.1 10^3/uL (1.5-8.5); NEUTROPHILS % 53.2 % (36.0-66.0); PLATELET COUNT, AUTOMATED 232 10^3/uL (150-450); RED BLOOD COUNT 4.92 10^6/uL (4.00-5.40); WHITE BLOOD COUNT 7.7 10^3/uL (4.0-10.0)
[2023-10-13 23:41] LABS: ALKALINE PHOSPHATASE 138 U/L (46-116); ALT/SGPT 59 U/L (7.0-40); AST/SGOT 38 U/L (<34); BILIRUBIN,DIRECT < 0.1 MG/DL (<0.4); BILIRUBIN,TOTAL 0.2 MG/DL (0.3-1.2); BLOOD UREA NITROGEN 14 MG/DL (9-23); CALCIUM LEVEL 9.3 MG/DL (8.3-10.6); CARBON DIOXIDE LEVEL 29 MMOL/L (20-31); CHLORIDE LEVEL 107 MMOL/L (98-107); CK-MB VALUE MASS < 1.0 NG/ML (<3.6); CREATININE FOR GFR 0.95 MG/DL (0.55-1.30); GLOMERULAR FILTRATION RATE > 60.0 (>45); GLUCOSE, FASTING 132 MG/DL (74-106); SALICYLATE LEVEL < 3.0 MG/DL (<30); SODIUM LEVEL 143 MMOL/L (136-145); TOTAL PROTEIN 7.5 G/DL (5.7-8.2)
[2023-10-13 23:56] LABS: CPK CREATINE PHOSPHOKINASE 77 U/L (34-145); MB/CK RELATIVE INDEX 1.29 (< OR =4)
[2023-10-14 00:15] LABS: ETHYL ALCOHOL (ETHANOL) 0.313 % (0.000-0.010); THYROID STIMULATING HORMONE 1.638 uIU/ML (0.55-4.78)
[2023-10-14 02:15] VITALS: BP 132/59; O2SAT 96
[2023-10-14 03:16] LABS: AMPHETAMINES LEVEL URINE NEGATIVE (NEGATIVE); BARBITURATES URINE NEGATIVE (NEGATIVE); BENZODIAZEPINES URINE NEGATIVE (NEGATIVE); CANNABINOIDS URINE NEGATIVE (NEGATIVE); COCAINE METABOLITE URINE NEGATIVE (NEGATIVE); METHADONE URINE NEGATIVE (NEGATIVE); OPIATES URINE NEGATIVE (NEGATIVE); PHENCYCLIDINE URINE NEGATIVE (NEGATIVE)
== END 2023-10-14 02:53 | disposition home or self-care (01) ==
LOC: EDBD 22:50 → M ED 22:50
DX: F10.129 Alcohol abuse with intoxication, unspecified (principal); W19.XXXA Unspecified fall, initial encounter; I10 Essential (primary) hypertension; E78.5 Hyperlipidemia, unspecified; F32.A Depression, unspecified; N18.2 Chronic kidney disease, stage 2 (mild); E55.9 Vitamin D deficiency, unspecified; Z86.79 Personal history of other diseases of the circulatory system; Z79.899 Other long term (current) drug therapy

== ENCOUNTER → 2023-10-19 | Outpatient (REF) ==
[2023-10-19 12:01] LABS: HEMATOCRIT 44.2 % (36.0-47.0); HEMOGLOBIN 13.8 g/dl (12.0-15.5); MEAN CORPUSCULAR HEMOGLOBIN 28.7 pg (27.0-33.0); MEAN CORPUSCULAR HGB CONC 31.2 g/dl (32.0-36.5); MEAN CORPUSCULAR VOLUME 91.9 fl (80.0-96.0); PLATELET COUNT, AUTOMATED 205 10^3/uL (150-450); RED BLOOD COUNT 4.81 10^6/uL (4.00-5.40)
[2023-10-19 12:16] LABS: ALBUMIN 3.8 G/DL (3.2-5.2); BILIRUBIN,DIRECT 0.1 MG/DL (<0.4); BILIRUBIN,TOTAL 0.4 MG/DL (0.3-1.2); CALCIUM LEVEL 9.5 MG/DL (8.3-10.6); CREATININE FOR GFR 1.18 MG/DL (0.55-1.30); GLOMERULAR FILTRATION RATE 48.3 (>45); POTASSIUM SERUM 4.9 MMOL/L (3.5-5.1); TOTAL PROTEIN 7.3 G/DL (5.7-8.2)
== END ==
PROVIDERS: ATTEND Physician Assistant
DX: K80.20 Calculus of gallbladder without cholecystitis without obstruction (principal)

== ENCOUNTER 2023-12-07 16:25 | Emergency (ER) | payer MEDICARE, OTHER, MEDICAID ==
[~2023-12-07] VITALS: Ht 162.6 cm; Wt 121.4 kg
[~2023-12-07 16:25] MED LIST changes: +ACET1TAB55 PO
[2023-12-07 17:00] LABS: BASO % 0.1 % (0.0-1.0); EOS # 0.1 10^3/uL (0.0-0.5); EOS % 0.7 % (0.0-3.0); HEMATOCRIT 43.7 % (36.0-47.0); LYMPH # 0.9 10^3/uL (1.5-5.0); LYMPH % 11.9 % (24.0-44.0); MEAN CORPUSCULAR HEMOGLOBIN 28.9 pg (27.0-33.0); MEAN CORPUSCULAR VOLUME 90.1 fl (80.0-96.0); MONO # 0.7 10^3/uL (0.0-0.8); NEUTROPHILS # 5.6 10^3/uL (1.5-8.5); NEUTROPHILS % 77.7 % (36.0-66.0); PLATELET COUNT, AUTOMATED 175 10^3/uL (150-450); RED BLOOD COUNT 4.85 10^6/uL (4.00-5.40); WHITE BLOOD COUNT 7.2 10^3/uL (4.0-10.0)
[2023-12-07 18:01] LABS: ETHYL ALCOHOL (ETHANOL) 0.006 % (0.000-0.010); LIPASE 53 U/L (12-53)
[2023-12-07 18:03] LABS: ALBUMIN 3.2 G/DL (3.2-5.2); ALKALINE PHOSPHATASE 302 U/L (46-116); ALT/SGPT 396 U/L (7.0-40); AST/SGOT 307 U/L (<34); BILIRUBIN,DIRECT 2.9 MG/DL (<0.4); BILIRUBIN,TOTAL 4.1 MG/DL (0.3-1.2); BLOOD UREA NITROGEN 12 MG/DL (9-23); CALCIUM LEVEL 9.7 MG/DL (8.3-10.6); CARBON DIOXIDE LEVEL 29 MMOL/L (20-31); CHLORIDE LEVEL 103 MMOL/L (98-107); CREATININE FOR GFR 0.96 MG/DL (0.55-1.30); GLOMERULAR FILTRATION RATE > 60.0 (>45); GLUCOSE, FASTING 108 MG/DL (74-106); POTASSIUM SERUM 4.4 MMOL/L (3.5-5.1); SODIUM LEVEL 136 MMOL/L (136-145); TOTAL PROTEIN 6.7 G/DL (5.7-8.2)
[2023-12-07] MEDS: NS 1,000 ML IV SCH (18:59)
[2023-12-07] MEDS: ONDANSETRON 4MG 2ML VIAL IV ONE ×2 (19:00→21:45)
[2023-12-07] MEDS: KETOROLAC 30 MG/ML 1ML VIAL IV ONE (19:00)
[2023-12-07] MEDS ORDERED: HOME MED LIST COMPLETE! XX SCH (20:55)
[2023-12-07] MEDS: MORPHINE 4 MG/ML 1ML VIAL IV PRN (21:45)
[2023-12-08] MEDS: PIPERACILLIN/TAZOBACTAM SOD 3.375 GM in DEXTROSE 5% (D5W) ADV/MINI-BAG 50 ML IV ONE (00:03)
[2023-12-08] MEDS: PIPERACILLIN/TAZOBACTAM SOD 4.5 GM in DEXTROSE 5% (D5W) ADV/MINI-BAG 50 ML IV SCH (06:09)
[2023-12-08 08:45] VITALS: BP 117/57; TEMP 98.1; O2SAT 97
== END 2023-12-08 09:24 | disposition short-term general hospital (02) ==
LOC: EDBD 16:25 → M ED 16:25
DX: K80.00 Calculus of gallbladder with acute cholecystitis without obstruction (principal); R74.01 Elevation of levels of liver transaminase levels; N28.1 Cyst of kidney, acquired; K44.9 Diaphragmatic hernia without obstruction or gangrene; I10 Essential (primary) hypertension; E78.5 Hyperlipidemia, unspecified; D50.9 Iron deficiency anemia, unspecified; N18.30 Chronic kidney disease, stage 3 unspecified; E66.9 Obesity, unspecified; F10.10 Alcohol abuse, uncomplicated; Z87.19 Personal history of other diseases of the digestive system; Z79.1 Long term (current) use of non-steroidal anti-inflammatories (NSAID); Z79.899 Other long term (current) drug therapy
CPT/HCPCS: 74181; 80048; 80076; 82077; 83690; 85025; 93005; 96361; 96365; 96366; 96375; 96376; 99285; J1885; J2405; J2543

== ENCOUNTER → 2024-01-04 | Outpatient (REF) | payer MEDICARE, OTHER, MEDICAID | PROVIDERS: ATTEND Physician Assistant | DX: K81.9 Cholecystitis, unspecified (principal); Z53.9 Procedure and treatment not carried out, unspecified reason ==

== ENCOUNTER → 2024-01-05 | Outpatient (REF) | payer MEDICARE, OTHER, MEDICAID ==
[2024-01-05 13:43] LABS: BASO % 0.6 % (0.0-1.0); EOS # 0.1 10^3/uL (0.0-0.5); HEMATOCRIT 45.6 % (36.0-47.0); HEMOGLOBIN 14.3 g/dl (12.0-15.5); LYMPH # 1.8 10^3/uL (1.5-5.0); LYMPH % 25.6 % (24.0-44.0); MEAN CORPUSCULAR HEMOGLOBIN 28.6 pg (27.0-33.0); MEAN CORPUSCULAR HGB CONC 31.4 g/dl (32.0-36.5); MEAN CORPUSCULAR VOLUME 91.2 fl (80.0-96.0); MONO # 0.6 10^3/uL (0.0-0.8); NEUTROPHILS # 4.5 10^3/uL (1.5-8.5); NEUTROPHILS % 63.2 % (36.0-66.0); PLATELET COUNT, AUTOMATED 220 10^3/uL (150-450); WHITE BLOOD COUNT 7.2 10^3/uL (4.0-10.0)
[2024-01-05 14:11] LABS: ALBUMIN 3.7 G/DL (3.2-5.2); BILIRUBIN,DIRECT 0.2 MG/DL (<0.4); BILIRUBIN,TOTAL 0.5 MG/DL (0.3-1.2); CALCIUM LEVEL 9.7 MG/DL (8.3-10.6); CREATININE FOR GFR 1.01 MG/DL (0.55-1.30); GLOMERULAR FILTRATION RATE 57.9 (>45); POTASSIUM SERUM 4.1 MMOL/L (3.5-5.1); TOTAL PROTEIN 7.4 G/DL (5.7-8.2)
[2024-01-05 14:27] LABS: HEMOGLOBIN A1c 5.8 % (4.0-6.0)
== END ==
PROVIDERS: ATTEND Physician Assistant
DX: K81.9 Cholecystitis, unspecified (principal); Z79.899 Other long term (current) drug therapy

== ENCOUNTER → 2024-04-11 | Outpatient (REF) | payer MEDICARE, OTHER, MEDICAID ==
[~2024-04-11] MED LIST changes: +ACET1TAB37 PO; +BISA10SU27 PR; +FLEEENE12 PR; +MILKSUS3 PO; +ONDA-282 PO; +VENL-37 PO
[2024-04-11 09:55] LABS: BASO % 0.8 % (0.0-1.0); EOS # 0.1 10^3/uL (0.0-0.5); EOS % 1.6 % (0.0-3.0); HEMATOCRIT 44.9 % (36.0-47.0); HEMOGLOBIN 13.6 g/dl (12.0-15.5); LYMPH # 1.5 10^3/uL (1.5-5.0); LYMPH % 29.7 % (24.0-44.0); MEAN CORPUSCULAR HEMOGLOBIN 27.6 pg (27.0-33.0); MEAN CORPUSCULAR HGB CONC 30.3 g/dl (32.0-36.5); MEAN CORPUSCULAR VOLUME 91.1 fl (80.0-96.0); MONO # 0.5 10^3/uL (0.0-0.8); MONO % 9.2 % (2.0-8.0); NEUTROPHILS % 57.9 % (36.0-66.0); PLATELET COUNT, AUTOMATED 203 10^3/uL (150-450); RED BLOOD COUNT 4.93 10^6/uL (4.00-5.40); WHITE BLOOD COUNT 5.1 10^3/uL (4.0-10.0)
[2024-04-11 10:33] LABS: ALBUMIN 3.7 G/DL (3.2-5.2); BILIRUBIN,TOTAL 0.4 MG/DL (0.3-1.2); CALCIUM LEVEL 9.1 MG/DL (8.3-10.6); CREATININE FOR GFR 1.03 MG/DL (0.55-1.30); GLOMERULAR FILTRATION RATE 56.6 (>45); POTASSIUM SERUM 4.2 MMOL/L (3.5-5.1); TOTAL PROTEIN 7.3 G/DL (5.7-8.2)
== END ==
PROVIDERS: ATTEND Internal Medicine
DX: G89.4 Chronic pain syndrome (principal); K70.9 Alcoholic liver disease, unspecified

== ENCOUNTER 2024-04-12 06:13 | Day surgery (SDC) | payer MEDICARE, OTHER, MEDICAID ==
[~2024-04-12] VITALS: Ht 167.6 cm; Wt 122.9 kg
[~2024-04-12 06:13] MED LIST changes: -ONDA-282 PO; +ceFAZolin SOD 2 GM in IV 1 EA IV ONE
[2024-04-12] MEDS ORDERED: LR 1,000 ML IV SCH ×2 (06:30→08:45)
[2024-04-12] MEDS: INDOCYANINE GREEN 25MG VIAL (IC-GREEN) IV ONE (07:26)
[2024-04-12] MEDS: ceFAZolin SOD 3 GM in DEXTROSE 5% (D5W) MINI-BAG PLU 1... IV ONE (07:43)
[2024-04-12] MEDS: HEPARIN SOD (PORCINE) 5000UNITS/ML 1ML VIAL/SYRINGE SQ ONE (07:45)
[2024-04-12] MEDS: SCOPOLAMINE 1MG TRANSDERMAL PATCH As Ordered ONE (07:46)
[2024-04-12] MEDS ORDERED: ACETAMINOPHEN 1000MG/100ML IV BAG As Ordered ONE (08:01)
[2024-04-12] MEDS ORDERED: SUGAMMADEX SODIUM 500 MG/5 ML VIAL (BRIDION) As Ordered ONE (08:01)
[2024-04-12] MEDS ORDERED: ONDANSETRON 4MG 2ML VIAL As Ordered ONE (08:01)
[2024-04-12] MEDS ORDERED: LIDOCAINE 2% 100MG/5ML SDV (FOR ANES.) As Ordered ONE (08:01)
[2024-04-12] MEDS ORDERED: fentaNYL 250 MCG/5 ML INJECTION As Ordered ONE (08:01)
[2024-04-12] MEDS ORDERED: propofoL 200 MG/20 ML VIAL As Ordered ONE (08:01)
[2024-04-12] MEDS ORDERED: ROCURONIUM BROMIDE 50MG/5ML VIAL As Ordered ONE (08:01)
[2024-04-12] MEDS ORDERED: MIDAZOLAM INJ 2MG/2ML VIAL As Ordered ONE (08:01)
[2024-04-12] MEDS ORDERED: hydrALAZINE 20MG/ML 1ML VIAL As Ordered ONE (08:11)
[2024-04-12] MEDS ORDERED: KETOROLAC 60MG 2ML VIAL As Ordered ONE (08:14)
[2024-04-12] MEDS ORDERED: fentaNYL 100 MCG/2 ML INJECTION IV PRN (08:45)
[2024-04-12] MEDS ORDERED: ONDA-282 PO (08:58)
[2024-04-12] MEDS: oxyCODONE 5MG TAB PO PRN (09:32)
[2024-04-12] MEDS: HYDROMORPHONE HCL 0.5 MG/ 0.5 ML SYRINGE IV PRN (09:33)
[2024-04-12] MEDS: ONDANSETRON 4MG 2ML VIAL IV PRN (09:34)
[2024-04-12 11:22] VITALS: BP 130/61; TEMP 97.6; O2SAT 95
== END 2024-04-12 11:24 | disposition home or self-care (01) ==
LOC: M SDC 06:13
PROVIDERS: ATTEND Surgery
DX: K81.1 Chronic cholecystitis (principal); I10 Essential (primary) hypertension; K76.0 Fatty (change of) liver, not elsewhere classified; F41.9 Anxiety disorder, unspecified; F32.A Depression, unspecified; Z79.899 Other long term (current) drug therapy
CPT/HCPCS: 47562; 88304; J0131; J0360; J0665; J0690; J1100; J1171; J1885; J2250; J2405; J3010; Q9968; S2900

== ENCOUNTER 2024-06-05 17:30 | Emergency (ER) | payer MEDICARE, OTHER, MEDICAID ==
[~2024-06-05 17:30] MED LIST changes: +ONDA-282 PO; -ceFAZolin SOD 2 GM in IV 1 EA IV ONE
[2024-06-05 18:43] VITALS: TEMP 97
[2024-06-05 18:50] LABS: BASO # 0.1 10^3/uL (0.0-0.2); BASO % 0.9 % (0.0-1.0); EOS # 0.1 10^3/uL (0.0-0.5); EOS % 1.5 % (0.0-3.0); HEMATOCRIT 46.7 % (36.0-47.0); HEMOGLOBIN 14.5 g/dl (12.0-15.5); LYMPH % 29.2 % (24.0-44.0); MEAN CORPUSCULAR HEMOGLOBIN 29.5 pg (27.0-33.0); MEAN CORPUSCULAR VOLUME 94.9 fl (80.0-96.0); MONO # 0.6 10^3/uL (0.0-0.8); MONO % 9.1 % (2.0-8.0); NEUTROPHILS # 3.9 10^3/uL (1.5-8.5); NEUTROPHILS % 58.6 % (36.0-66.0); PLATELET COUNT, AUTOMATED 210 10^3/uL (150-450); RED BLOOD COUNT 4.92 10^6/uL (4.00-5.40); WHITE BLOOD COUNT 6.7 10^3/uL (4.0-10.0)
[2024-06-05 19:19] LABS: ETHYL ALCOHOL (ETHANOL) 0.297 % (0.000-0.010)
[2024-06-05 19:20] LABS: CALCIUM LEVEL 9.2 MG/DL (8.3-10.6); POTASSIUM SERUM 3.9 MMOL/L (3.5-5.1)
[2024-06-06 03:30] VITALS: BP 152/81; O2SAT 94
== END 2024-06-06 04:20 | disposition home or self-care (01) ==
LOC: EDBD 17:30 → M ED 17:30
DX: F10.120 Alcohol abuse with intoxication, uncomplicated (principal); F02.80 Dementia in other diseases classified elsewhere, unspecified severity, without behavioral disturbance, psychotic disturbance, mood disturbance, and anxiety; I25.2 Old myocardial infarction; Z79.1 Long term (current) use of non-steroidal anti-inflammatories (NSAID); Z79.899 Other long term (current) drug therapy

== ENCOUNTER → 2024-09-04 | Outpatient (CLI) | payer MEDICARE, OTHER, MEDICAID ==
[~2024-09-04] MED LIST changes: +TRAZ-252
== END ==
LOC: M WUC 10:06
PROVIDERS: ATTEND Internal Medicine
DX: M17.0 Bilateral primary osteoarthritis of knee (principal)

== ENCOUNTER 2024-11-18 17:02 | Emergency (ER) | payer MEDICARE, OTHER, MEDICAID ==
[~2024-11-18 17:02] MED LIST changes: +ACET-1592 PO; -ACET1TAB37 PO
[2024-11-18 17:53] LABS: BASO # 0.1 10^3/uL (0.0-0.2); BASO % 0.6 % (0.0-1.0); EOS # 0.1 10^3/uL (0.0-0.5); EOS % 1.2 % (0.0-3.0); LYMPH # 2.5 10^3/uL (1.5-5.0); LYMPH % 31.3 % (24.0-44.0); MONO # 0.8 10^3/uL (0.0-0.8); MONO % 9.4 % (2.0-8.0); NEUTROPHILS # 4.6 10^3/uL (1.5-8.5); NEUTROPHILS % 56.5 % (36.0-66.0); PLATELET COUNT, AUTOMATED 188 10^3/uL (150-450)
[2024-11-18 18:17] LABS: SALICYLATE LEVEL < 3.0 MG/DL (<30)
[2024-11-18 18:18] LABS: ALT/SGPT 45 U/L (7.0-40); AST/SGOT 37 U/L (<34); CALCIUM LEVEL 9.3 MG/DL (8.3-10.6); CARBON DIOXIDE LEVEL 22 MMOL/L (20-31); CHLORIDE LEVEL 104 MMOL/L (98-107); CREATININE FOR GFR 1.08 MG/DL (0.55-1.30); GLOMERULAR FILTRATION RATE 55.3 (>39); POTASSIUM SERUM 3.8 MMOL/L (3.5-5.1); SODIUM LEVEL 139 MMOL/L (136-145)
[2024-11-18 18:26] LABS: ETHYL ALCOHOL (ETHANOL) 0.298 % (0.000-0.010)
[2024-11-18 18:32] LABS: CPK CREATINE PHOSPHOKINASE 72 U/L (34-145)
[2024-11-18 18:45] LABS: OSMOLALITY SERUM 364 MOSM/KG (280-301)
[2024-11-18 19:30] VITALS: BP 132/67; TEMP 97.3; O2SAT 97
== END 2024-11-18 22:53 | disposition home or self-care (01) ==
LOC: M ED 17:02
DX: F10.129 Alcohol abuse with intoxication, unspecified (principal); I10 Essential (primary) hypertension; I70.0 Atherosclerosis of aorta; E78.5 Hyperlipidemia, unspecified; N18.9 Chronic kidney disease, unspecified; F32.A Depression, unspecified; Z79.1 Long term (current) use of non-steroidal anti-inflammatories (NSAID); Z79.899 Other long term (current) drug therapy

== ENCOUNTER → 2024-12-12 | Outpatient (CLI) | payer MEDICARE, OTHER, MEDICAID | LOC: M OUTALCOH 08:31 | PROVIDERS: ATTEND Psychiatry & Neurology Psychiatry | DX: F10.20 Alcohol dependence, uncomplicated (principal) ==

== ENCOUNTER 2025-01-02 10:29 | Outpatient (RCR) | payer MEDICARE, OTHER, MEDICAID | END 2025-01-13 | LOC: M OUTALCOH 10:29 | PROVIDERS: ATTEND Psychiatry & Neurology Psychiatry | DX: F10.20 Alcohol dependence, uncomplicated (principal) ==

== ENCOUNTER 2025-01-16 10:27 | Outpatient (RCR) | payer MEDICARE, OTHER, MEDICAID | END 2025-02-13 | LOC: M OUTALCOH 10:27 | PROVIDERS: ATTEND Psychiatry & Neurology Psychiatry | DX: F10.20 Alcohol dependence, uncomplicated (principal) ==